=== PATIENT | male | born 1955 | race Caucasian/White ===

== ENCOUNTER 2016-05-12 20:41 | Inpatient (IN) | payer MEDICAID, OTHER ==
[~2016-05-12] VITALS: Ht 180.3 cm; Wt 83.5 kg
[~2016-05-12 20:41] MED LIST: ACID1TAB7 PO; AMIO200T42 PO; APIX5TAB PO; ASPI-496 PO; ASPI325T4 PO; ATOR80TA75 PO; AZIT500T4 PO; CARV12.52 PO; DIGO250T PO; DOCU100C8 PO; DULO20CA17 PO; FAMO20TA7 PO; FENT1PAT75 TD; FERR325T20 PO; FURO40TA6 PO; GABA100C8 PO; GABA300C10 PO; LEVO25TA2 PO; LISI-167 PO; LISI5TAB7 PO; MAGN400T26 PO; METO50TA82 PO; NITR0.4T SL; OXYC1TAB8 PO; POLY17PO5 PO; SPIR25TA PO
[2016-05-12] MEDS ORDERED: DILTIAZEM 125 MG in DEXTROSE 5% 100 ML IV SCH (21:02)
[2016-05-12] MEDS ORDERED: CLOP300T5 PO (21:05)
[2016-05-12] MEDS ORDERED: ONDANSETRON 2MG/ML, 2ML IVPush ONE (21:30)
[2016-05-12] MEDS ORDERED: DILTIAZEM 5 MG/ML, 5ML IV ONE (21:30)
[2016-05-12] MEDS ORDERED: SODIUM CHLORIDE FLUSH 10ML SYR IVF ONE (21:30)
[2016-05-12] MEDS ORDERED: NITROGLYCERIN SINGLE TAB 0.4 MG SL PRN (21:30)
[2016-05-12 21:39] LABS: HEMOGLOBIN 9.8 g/dL (13.7-18.0)
[2016-05-12 21:51] LABS: BLOOD UREA NITROGEN 30 mg/dL (7-18)
[2016-05-12] MEDS ORDERED: SODIUM CHLORIDE FLUSH 10ML SYR IVF PRN (23:00)
[2016-05-12] MEDS ORDERED: DILTIAZEM 5 MG/ML, 5ML ONE (23:49)
[2016-05-12] MEDS ORDERED: ONDANSETRON 2MG/ML, 2ML ONE (23:49)
[2016-05-12] MEDS ORDERED: MORPHINE SULFATE 4 MG/ML, 1ML ONE (23:49)
[2016-05-12] MEDS: MORPHINE SULFATE 4 MG/ML, 1ML IVPush PRN (23:54)
[2016-05-13] MEDS ORDERED: NITROGLYCERIN 0.4 MG BOTTLE (25 TABS) SL PRN (00:30)
[2016-05-13] MEDS ORDERED: BISACODYL 10 MG SUPP PR PRN (00:30)
[2016-05-13] MEDS ORDERED: ACETAMINOPHEN 325 MG TABLET PO PRN (00:30)
[2016-05-13] MEDS ORDERED: POLYETHYLENE GLYCOL 17 GM PACKET PO PRN ×2 (00:30)
[2016-05-13] MEDS ORDERED: ONDANSETRON 2MG/ML, 2ML IVP PRN (00:30)
[2016-05-13] MEDS ORDERED: MORPHINE SULFATE 4 MG/ML, 1ML ONE (00:54)
[2016-05-13] MEDS ORDERED: FUROSEMIDE 20 MG/2 ML ONE (00:54)
[2016-05-13] MEDS: SODIUM CHLORIDE FLUSH 10ML SYR IVF SCH ×2 (00:56→21:00)
[2016-05-13] MEDS: MORPHINE SULFATE 4 MG/ML, 1ML IVPush PRN ×3 (00:56→22:53)
[2016-05-13] MEDS: FUROSEMIDE 20 MG/2 ML IV SCH ×3 (00:56→17:17)
[2016-05-13] MEDS: GABAPENTIN 300 MG CAPSULE PO SCH ×2 (04:10→08:31)
[2016-05-13] MEDS: ATORVASTATIN 80 MG TABLET PO SCH ×2 (04:10→21:13)
[2016-05-13 04:29] LABS: HEMOGLOBIN 9.6 g/dL (13.7-18.0)
[2016-05-13 04:41] LABS: ASPARTATE AMINO TRANSFERASE 23 U/L (15-37); BLOOD UREA NITROGEN 32 mg/dL (7-18)
[2016-05-13 04:43] LABS: IS PT STATUS REG ER OR PRE ER? NO
[2016-05-13] MEDS: ASPIRIN 325 MG TABLET PO SCH (06:16)
[2016-05-13 07:25] VITALS: BP 135/103
[2016-05-13] MEDS: CLOPIDOGREL 75 MG TABLET PO SCH (08:31)
[2016-05-13] MEDS: POTASSIUM CHLORIDE 20 MEQ TAB.ER.PRT PO SCH (08:32)
[2016-05-13] MEDS: SENNA/DOCUSATE TABLET PO SCH (08:32)
[2016-05-13] MEDS: LEVOTHYROXINE 50 MCG TABLET PO SCH (08:32)
[2016-05-13] MEDS: LISINOPRIL 10 MG TABLET PO SCH (08:32)
[2016-05-13] MEDS ORDERED: FUROSEMIDE 40 MG TABLET PO SCH (09:00)
[2016-05-13] MEDS ORDERED: CLOPIDOGREL 300 MG TABLET PO SCH (09:00)
[2016-05-13 09:22] LABS: IS PT STATUS REG ER OR PRE ER? NO
[2016-05-13] MEDS: DILTIAZEM 125 MG in SODIUM CHLORIDE 0.9% 100 ML IV PRN ×2 (13:05→22:54)
[2016-05-13 13:37] VITALS: BP 128/79
[2016-05-13] MEDS ORDERED: GABAPENTIN 300 MG CAPSULE PO SCH (16:00)
[2016-05-13 19:58] VITALS: BP 120/89
[2016-05-13 20:52] VITALS: BP 123/88
[2016-05-13] MEDS: NITROGLYCERIN 0.4 MG BOTTLE (25 TABS) SL PRN (21:13)
[2016-05-13 21:35] VITALS: BP 121/77
[2016-05-13 22:54] VITALS: BP 127/60
[2016-05-13] MEDS ORDERED: GABA100C8 PO (23:11)
[2016-05-13] MEDS ORDERED: APIX5TAB PO (23:11)
[2016-05-13] MEDS ORDERED: OXYC5TAB3 PO (23:53)
[2016-05-13] MEDS ORDERED: MORP15TA39 PO (23:53)
[2016-05-13] MEDS ORDERED: FERR325T20 PO (23:55)
[2016-05-13] MEDS ORDERED: CYAN1TAB29 PO (23:55)
[2016-05-13] MEDS ORDERED: CHOL400T38 PO (23:55)
[2016-05-14] MEDS: APIXABAN 5 MG TABLET PO SCH ×3 (00:04→21:12)
[2016-05-14 00:45] VITALS: BP 112/79
[2016-05-14 04:39] LABS: BLOOD UREA NITROGEN 37 mg/dL (7-18)
[2016-05-14] MEDS: ASPIRIN 325 MG TABLET PO SCH (05:50)
[2016-05-14] MEDS: LEVOTHYROXINE 50 MCG TABLET PO SCH (05:50)
[2016-05-14 07:52] VITALS: BP 128/89
[2016-05-14] MEDS: CLOPIDOGREL 75 MG TABLET PO SCH (08:14)
[2016-05-14] MEDS: GABAPENTIN 100 MG CAPSULE PO SCH (08:14)
[2016-05-14] MEDS: FUROSEMIDE 20 MG/2 ML IV SCH ×2 (08:14→16:34)
[2016-05-14] MEDS: SENNA/DOCUSATE TABLET PO SCH (08:14)
[2016-05-14] MEDS: SODIUM CHLORIDE FLUSH 10ML SYR IVF SCH ×2 (08:15→21:15)
[2016-05-14] MEDS: POTASSIUM CHLORIDE 20 MEQ TAB.ER.PRT PO SCH (08:15)
[2016-05-14] MEDS: LISINOPRIL 10 MG TABLET PO SCH (08:15)
[2016-05-14] MEDS: FERROUS SULFATE 325 MG TABLET PO SCH ×2 (09:10→16:33)
[2016-05-14] MEDS: MORPHINE SULFATE 4 MG/ML, 1ML IVPush PRN (10:04)
[2016-05-14] MEDS ORDERED: AMIODARONE 150 MG in DEXTROSE 5% 100 ML IVPB ONE (11:30)
[2016-05-14] MEDS: FILTER 0.22 MICRON IV PRN (11:56)
[2016-05-14] MEDS: AMIODARONE 900 MG in DEXTROSE 5% 482 ML IV PRN (11:56)
[2016-05-14 13:24] VITALS: BP 126/76
[2016-05-14] MEDS: OXYcodone IR 5MG TABLET PO PRN ×2 (16:34→21:12)
[2016-05-14 19:10] VITALS: BP 133/87
[2016-05-14] MEDS: ATORVASTATIN 80 MG TABLET PO SCH (21:11)
[2016-05-15] MEDS: NITROGLYCERIN 0.4 MG BOTTLE (25 TABS) SL PRN ×2 (00:30→00:37)
[2016-05-15 00:45] LABS: IS PT STATUS REG ER OR PRE ER? NO
[2016-05-15] MEDS: OXYcodone IR 5MG TABLET PO PRN ×3 (01:18→16:51)
[2016-05-15 01:25] VITALS: BP 135/78
[2016-05-15] MEDS: LEVOTHYROXINE 50 MCG TABLET PO SCH (06:34)
[2016-05-15 07:11] VITALS: BP 143/94
[2016-05-15] MEDS: SODIUM CHLORIDE FLUSH 10ML SYR IVF SCH ×2 (08:44→21:40)
[2016-05-15] MEDS: SENNA/DOCUSATE TABLET PO SCH (08:44)
[2016-05-15] MEDS: APIXABAN 5 MG TABLET PO SCH ×2 (08:44→21:39)
[2016-05-15] MEDS: FERROUS SULFATE 325 MG TABLET PO SCH ×2 (08:45→18:24)
[2016-05-15] MEDS: LISINOPRIL 10 MG TABLET PO SCH (08:45)
[2016-05-15] MEDS: GABAPENTIN 100 MG CAPSULE PO SCH (08:45)
[2016-05-15] MEDS: FUROSEMIDE 20 MG/2 ML IV SCH ×2 (08:50→16:51)
[2016-05-15] MEDS: CLOPIDOGREL 75 MG TABLET PO SCH (08:50)
[2016-05-15] MEDS: POTASSIUM CHLORIDE 20 MEQ TAB.ER.PRT PO SCH (08:50)
[2016-05-15 11:55] VITALS: BP 123/87
[2016-05-15] MEDS: AMIODARONE 900 MG in DEXTROSE 5% 482 ML IV PRN (13:07)
[2016-05-15 14:37] VITALS: BP 123/89
[2016-05-15] MEDS ORDERED: OMNIPAQUE 350 MG/ML, 100ML BOTTLE ONE (16:28)
[2016-05-15] MEDS: CARVEDILOL 12.5 MG TABLET PO SCH (16:51)
[2016-05-15 19:08] VITALS: BP 118/80
[2016-05-15] MEDS: ATORVASTATIN 80 MG TABLET PO SCH (21:39)
[2016-05-16 01:27] VITALS: BP 128/78
[2016-05-16 05:49] LABS: BLOOD UREA NITROGEN 28 mg/dL (7-18)
[2016-05-16] MEDS: CARVEDILOL 12.5 MG TABLET PO SCH ×2 (06:26→18:24)
[2016-05-16] MEDS: LEVOTHYROXINE 50 MCG TABLET PO SCH (06:26)
[2016-05-16 06:55] VITALS: BP 121/76
[2016-05-16] MEDS: LISINOPRIL 10 MG TABLET PO SCH (08:31)
[2016-05-16] MEDS: CLOPIDOGREL 75 MG TABLET PO SCH (08:31)
[2016-05-16] MEDS ORDERED: PROPOFOL 10 MG/ML, 20ML ONE (09:17)
[2016-05-16] MEDS: POTASSIUM CHLORIDE 20 MEQ TAB.ER.PRT PO SCH (10:07)
[2016-05-16] MEDS: GABAPENTIN 100 MG CAPSULE PO SCH (10:08)
[2016-05-16] MEDS: FUROSEMIDE 20 MG/2 ML IV SCH ×2 (10:08→18:24)
[2016-05-16] MEDS: FERROUS SULFATE 325 MG TABLET PO SCH ×2 (10:08→18:24)
[2016-05-16] MEDS: SENNA/DOCUSATE TABLET PO SCH (10:08)
[2016-05-16] MEDS: SODIUM CHLORIDE FLUSH 10ML SYR IVF SCH ×2 (10:09→20:50)
[2016-05-16] MEDS: APIXABAN 5 MG TABLET PO SCH ×2 (10:11→20:50)
[2016-05-16 13:46] VITALS: BP 113/75
[2016-05-16 18:20] VITALS: BP 136/88
[2016-05-16] MEDS ORDERED: MAGNESIUM SULFATE PMX 2GM/50ML 50 ML IV ONE (20:30)
[2016-05-16] MEDS ORDERED: MORPHINE SULFATE 4 MG/ML, 1ML IVPush ONE (20:30)
[2016-05-16] MEDS: ATORVASTATIN 80 MG TABLET PO SCH (20:50)
[2016-05-16] MEDS: FILTER 0.22 MICRON IV PRN (20:53)
[2016-05-16] MEDS: AMIODARONE 900 MG in DEXTROSE 5% 482 ML IV PRN (20:53)
[2016-05-16 21:07] LABS: IS PT STATUS REG ER OR PRE ER? NO
[2016-05-17] VITALS (7 sets, daily range): BP systolic 92–146; BP diastolic 55–92
[2016-05-17 02:33] LABS: IS PT STATUS REG ER OR PRE ER? NO
[2016-05-17] MEDS: CARVEDILOL 12.5 MG TABLET PO SCH ×2 (05:41→18:25)
[2016-05-17] MEDS: LEVOTHYROXINE 50 MCG TABLET PO SCH (05:42)
[2016-05-17] MEDS ORDERED: KETOROLAC 30 MG/1 ML IVPush ONE (08:30)
[2016-05-17] MEDS: FUROSEMIDE 20 MG/2 ML IV SCH ×2 (08:38→18:25)
[2016-05-17] MEDS: POTASSIUM CHLORIDE 20 MEQ TAB.ER.PRT PO SCH (08:39)
[2016-05-17] MEDS: FERROUS SULFATE 325 MG TABLET PO SCH ×2 (08:39→18:25)
[2016-05-17] MEDS: APIXABAN 5 MG TABLET PO SCH ×2 (08:40→22:10)
[2016-05-17] MEDS: SODIUM CHLORIDE FLUSH 10ML SYR IVF SCH ×2 (08:40→22:10)
[2016-05-17] MEDS: CLOPIDOGREL 75 MG TABLET PO SCH (08:41)
[2016-05-17] MEDS: LISINOPRIL 10 MG TABLET PO SCH (08:41)
[2016-05-17] MEDS: GABAPENTIN 100 MG CAPSULE PO SCH (08:41)
[2016-05-17] MEDS: SENNA/DOCUSATE TABLET PO SCH (08:42)
[2016-05-17] MEDS: AMIODARONE 200 MG TABLET PO SCH ×2 (10:11→22:10)
[2016-05-17] MEDS: OXYcodone IR 5MG TABLET PO PRN (15:27)
[2016-05-17] MEDS: ATORVASTATIN 80 MG TABLET PO SCH (22:10)
[2016-05-17] MEDS: NITROGLYCERIN 0.4 MG BOTTLE (25 TABS) SL PRN (22:32)
[2016-05-17] MEDS: MORPHINE SULFATE 4 MG/ML, 1ML IVPush PRN (22:46)
[2016-05-17 23:11] LABS: IS PT STATUS REG ER OR PRE ER? NO
[2016-05-18] MEDS: OXYcodone IR 5MG TABLET PO PRN ×2 (01:59→15:58)
[2016-05-18 02:03] VITALS: BP 133/87
[2016-05-18] MEDS: MORPHINE SULFATE 4 MG/ML, 1ML IVPush PRN ×4 (05:20→23:51)
[2016-05-18] MEDS: CARVEDILOL 12.5 MG TABLET PO SCH ×2 (05:20→17:32)
[2016-05-18] MEDS: LEVOTHYROXINE 50 MCG TABLET PO SCH (05:20)
[2016-05-18 05:36] LABS: IS PT STATUS REG ER OR PRE ER? NO
[2016-05-18 08:09] VITALS: BP 144/92
[2016-05-18] MEDS: LISINOPRIL 10 MG TABLET PO SCH (08:24)
[2016-05-18] MEDS: FUROSEMIDE 20 MG/2 ML IV SCH ×2 (08:24→17:31)
[2016-05-18] MEDS: AMIODARONE 200 MG TABLET PO SCH ×2 (08:25→22:30)
[2016-05-18] MEDS: POTASSIUM CHLORIDE 20 MEQ TAB.ER.PRT PO SCH (08:25)
[2016-05-18] MEDS: SENNA/DOCUSATE TABLET PO SCH (08:25)
[2016-05-18] MEDS: GABAPENTIN 100 MG CAPSULE PO SCH (08:25)
[2016-05-18] MEDS: CLOPIDOGREL 75 MG TABLET PO SCH (08:25)
[2016-05-18] MEDS: FERROUS SULFATE 325 MG TABLET PO SCH ×2 (08:25→17:32)
[2016-05-18] MEDS: APIXABAN 5 MG TABLET PO SCH ×2 (08:25→22:30)
[2016-05-18] MEDS: SODIUM CHLORIDE FLUSH 10ML SYR IVF SCH ×2 (08:26→22:31)
[2016-05-18 15:06] VITALS: BP 123/78
[2016-05-18 20:05] VITALS: BP 113/75
[2016-05-18] MEDS: ATORVASTATIN 80 MG TABLET PO SCH (22:29)
[2016-05-19] VITALS (16 sets, daily range): BP systolic 100–135; BP diastolic 69–89
[2016-05-19] MEDS: MORPHINE SULFATE 4 MG/ML, 1ML IVPush PRN ×3 (05:59→23:03)
[2016-05-19] MEDS: LEVOTHYROXINE 50 MCG TABLET PO SCH (05:59)
[2016-05-19] MEDS: CARVEDILOL 12.5 MG TABLET PO SCH ×2 (06:00→18:08)
[2016-05-19] MEDS: APIXABAN 5 MG TABLET PO SCH ×2 (08:07→21:58)
[2016-05-19] MEDS: LISINOPRIL 10 MG TABLET PO SCH (08:07)
[2016-05-19] MEDS: GABAPENTIN 100 MG CAPSULE PO SCH (08:07)
[2016-05-19] MEDS: CLOPIDOGREL 75 MG TABLET PO SCH (08:07)
[2016-05-19] MEDS ORDERED: REGADENOSON 0.4 MG/5 ML SYRINGE ONE (08:26)
[2016-05-19] MEDS: AMIODARONE 200 MG TABLET PO SCH ×2 (10:27→21:59)
[2016-05-19] MEDS: POTASSIUM CHLORIDE 20 MEQ TAB.ER.PRT PO SCH (10:27)
[2016-05-19] MEDS: FUROSEMIDE 20 MG/2 ML IV SCH ×2 (10:28→16:23)
[2016-05-19] MEDS: FERROUS SULFATE 325 MG TABLET PO SCH ×2 (10:28→16:23)
[2016-05-19] MEDS: SODIUM CHLORIDE FLUSH 10ML SYR IVF SCH ×2 (10:28→21:59)
[2016-05-19] MEDS: SENNA/DOCUSATE TABLET PO SCH (10:28)
[2016-05-19] MEDS: OXYcodone IR 5MG TABLET PO PRN ×2 (10:36→15:20)
[2016-05-19] MEDS: ATORVASTATIN 80 MG TABLET PO SCH (21:58)
[2016-05-20 02:34] VITALS: BP 124/76
[2016-05-20 05:34] LABS: HEMOGLOBIN 11.1 g/dL (13.7-18.0)
[2016-05-20 05:43] LABS: BLOOD UREA NITROGEN 33 mg/dL (7-18)
[2016-05-20 06:07] VITALS: BP 121/77
[2016-05-20] MEDS: CARVEDILOL 12.5 MG TABLET PO SCH (06:07)
[2016-05-20] MEDS: MORPHINE SULFATE 4 MG/ML, 1ML IVPush PRN (06:07)
[2016-05-20] MEDS: LEVOTHYROXINE 50 MCG TABLET PO SCH (06:08)
[2016-05-20 07:23] VITALS: BP 119/77
[2016-05-20] MEDS: FUROSEMIDE 20 MG/2 ML IV SCH (09:22)
[2016-05-20] MEDS: SENNA/DOCUSATE TABLET PO SCH (09:23)
[2016-05-20] MEDS: FERROUS SULFATE 325 MG TABLET PO SCH (09:23)
[2016-05-20] MEDS: CLOPIDOGREL 75 MG TABLET PO SCH (09:23)
[2016-05-20] MEDS: GABAPENTIN 100 MG CAPSULE PO SCH (09:23)
[2016-05-20] MEDS: LISINOPRIL 10 MG TABLET PO SCH (09:23)
[2016-05-20] MEDS: AMIODARONE 200 MG TABLET PO SCH (09:23)
[2016-05-20] MEDS: POTASSIUM CHLORIDE 20 MEQ TAB.ER.PRT PO SCH (09:23)
[2016-05-20] MEDS: SODIUM CHLORIDE FLUSH 10ML SYR IVF SCH (09:24)
[2016-05-20] MEDS: APIXABAN 5 MG TABLET PO SCH (09:24)
[2016-05-20] MEDS ORDERED: CARV12.543 PO (09:42)
[2016-05-20] MEDS ORDERED: LEVO50TA PO (09:42)
[2016-05-20] MEDS ORDERED: AMIO200T42 PO (11:15)
[2016-05-20] MEDS: OXYcodone IR 5MG TABLET PO PRN (11:52)
[2016-05-20 11:53] VITALS: BP 108/73
[2016-05-24] MEDS ORDERED: AMIODARONE 200 MG TABLET PO SCH (09:00)
== END 2016-05-20 14:15 | disposition home health service (06) | DRG 308 ==
LOC: ED 22:41 → EDIP 22:42 → ED 23:01 → CCU 05-13 03:17 → ICU 05-13 07:47 → 5SO 05-14 22:33 → DCLOUNGE 05-20 13:35
PROVIDERS: ADMIT Student in an Organized Health Care Education/Training Program; ATTEND Student in an Organized Health Care Education/Training Program
PROC: 5A2204Z Restoration of Cardiac Rhythm, Single (ICD-10-PCS; principal; 2016-05-16 09:15)
DX: I48.2 Chronic atrial fibrillation (principal); I50.43 Acute on chronic combined systolic (congestive) and diastolic (congestive) heart failure; E44.0 Moderate protein-calorie malnutrition; D68.69 Other thrombophilia; I25.10 Atherosclerotic heart disease of native coronary artery without angina pectoris; I25.5 Ischemic cardiomyopathy; I11.0 Hypertensive heart disease with heart failure; D50.9 Iron deficiency anemia, unspecified; I47.2 Ventricular tachycardia; I27.2 Other secondary pulmonary hypertension; E78.5 Hyperlipidemia, unspecified; E03.9 Hypothyroidism, unspecified; I77.810 Thoracic aortic ectasia; N28.9 Disorder of kidney and ureter, unspecified; I25.2 Old myocardial infarction; Z90.49 Acquired absence of other specified parts of digestive tract; Z95.5 Presence of coronary angioplasty implant and graft; Z98.890 Other specified postprocedural states; Z80.3 Family history of malignant neoplasm of breast; Z68.25 Body mass index [BMI] 25.0-25.9, adult; Z79.01 Long term (current) use of anticoagulants
CPT/HCPCS: 36415; 71010; 71275; 78452; 80048; 80053; 82040; 82728; 83540; 83550; 83735; 83880; 84439; 84443; 84484; 85025; 85610; 85730; 87081; 92960; 93005; 93017; 93306; 93970; 96374; 96375; 96376; J1885; J2405; J2704; J2785; Q9967; A9502; C9898; J0282; J1940; J3475; J7060

== ENCOUNTER 2016-08-28 20:18 | Inpatient (IN) | payer MEDICAID, OTHER ==
[~2016-08-28] VITALS: Ht 180.3 cm; Wt 94.2 kg
[~2016-08-28 20:18] MED LIST changes: -AZIT500T4 PO; +AZIT500T77 PO; +CARV12.543 PO; +CHOL400T38 PO; +CLOP300T5 PO; +CYAN1TAB29 PO; +GABA-826 PO; -GABA100C8 PO; +LEVO50TA PO; +MORP-52 PO; +OXYC5TAB3 PO
[2016-08-28] MEDS ORDERED: ONDANSETRON 2MG/ML, 2ML ONE (20:49)
[2016-08-28] MEDS ORDERED: MORPHINE SULFATE 4 MG/ML, 1ML ONE ×2 (20:49→22:12)
[2016-08-28] MEDS: MORPHINE SULFATE 4 MG/ML, 1ML IVPush PRN ×2 (20:56→22:30)
[2016-08-28] MEDS ORDERED: ONDANSETRON 2MG/ML, 2ML IVPush ONE (21:00)
[2016-08-28 21:10] LABS: BLOOD UREA NITROGEN 37 mg/dL (7-18)
[2016-08-28] MEDS ORDERED: CLON-364 PO (22:22)
[2016-08-28] MEDS ORDERED: ISOS60TA36 PO (22:25)
[2016-08-28 22:49] VITALS: BP 150/82
[2016-08-28] MEDS ORDERED: RANO500T2 PO (23:20)
[2016-08-28] MEDS ORDERED: GABA600T2 PO (23:20)
[2016-08-28] MEDS ORDERED: ASPI-496 PO (23:20)
[2016-08-28] MEDS ORDERED: ATOR20TA9 PO (23:20)
[2016-08-29] VITALS (7 sets, daily range): BP systolic 93–113; BP diastolic 57–63
[2016-08-29] MEDS ORDERED: POLYETHYLENE GLYCOL 17 GM PACKET PO PRN (01:00)
[2016-08-29] MEDS ORDERED: NITROGLYCERIN 0.4 MG BOTTLE (25 TABS) SL PRN (01:00)
[2016-08-29] MEDS ORDERED: TEMAZEPAM 15 MG CAPSULE PO PRN (01:00)
[2016-08-29] MEDS ORDERED: ONDANSETRON 2MG/ML, 2ML IVPush PRN (01:00)
[2016-08-29] MEDS ORDERED: hydrALAzine 20 MG/ML, 1ML IVPush PRN (01:00)
[2016-08-29] MEDS ORDERED: MORPHINE SULFATE 4 MG/ML, 1ML ONE (01:21)
[2016-08-29] MEDS: morphine SULFATE 10 MG/ML, 1ML IVPush PRN ×8 (02:16→21:33)
[2016-08-29] MEDS: SODIUM CHLORIDE 0.9% 1,000 ML IV SCH ×2 (02:18→14:38)
[2016-08-29 02:52] LABS: IS PT STATUS REG ER OR PRE ER? NO
[2016-08-29] MEDS: CARVEDILOL 12.5 MG TABLET PO SCH ×2 (06:41→16:46)
[2016-08-29] MEDS: LEVOTHYROXINE 50 MCG TABLET PO SCH (06:41)
[2016-08-29] MEDS: FOLIC ACID MC SCH ×3 (08:00→20:39)
[2016-08-29] MEDS: CYANOCOBALAMIN MC SCH ×3 (08:00→20:39)
[2016-08-29] MEDS: GABAPENTIN 300 MG CAPSULE PO SCH ×3 (08:23→20:38)
[2016-08-29] MEDS: APIXABAN 5 MG TABLET PO SCH ×2 (08:23→20:38)
[2016-08-29 08:27] LABS: IS PT STATUS REG ER OR PRE ER? NO
[2016-08-29 08:38] LABS: BLOOD UREA NITROGEN 37 mg/dL (7-18)
[2016-08-29] MEDS ORDERED: ASPIRIN 81 MG TABLET EC PO SCH (09:00)
[2016-08-29] MEDS ORDERED: LISINOPRIL 20 MG TABLET PO SCH (09:00)
[2016-08-29] MEDS ORDERED: RANOLAZINE 500 MG TAB.ER.12H PO SCH ×2 (09:00→21:00)
[2016-08-29] MEDS ORDERED: CLOPIDOGREL 300 MG TABLET PO SCH (09:00)
[2016-08-29] MEDS ORDERED: CHOLECALCIFEROL 400 UNITS TABLET PO SCH (09:00)
[2016-08-29] MEDS ORDERED: ISOSORBIDE MONONITRATE ER 60 MG TABLET PO SCH (09:00)
[2016-08-29] MEDS ORDERED: AMIODARONE 200 MG TABLET PO SCH (09:00)
[2016-08-29] MEDS ORDERED: CLOPIDOGREL 75 MG TABLET PO SCH (09:00)
[2016-08-29] MEDS ORDERED: FUROSEMIDE 20 MG TABLET PO SCH (09:00)
[2016-08-29] MEDS: Cyanocobalamin/Folic Acid** (Vitamin B12-Folic Acid Tablet**) PO SCH (09:00)
[2016-08-29 14:05] LABS: IS PT STATUS REG ER OR PRE ER? NO
[2016-08-29] MEDS ORDERED: FERROUS SULFATE 325 MG TABLET PO SCH (17:00)
[2016-08-29] MEDS ORDERED: ATORVASTATIN 80 MG TABLET PO SCH (21:00)
[2016-08-29] MEDS ORDERED: ATORVASTATIN 20 MG TABLET PO SCH (21:00)
[2016-08-30] MEDS: morphine SULFATE 10 MG/ML, 1ML IVPush PRN ×3 (00:36→08:38)
[2016-08-30 02:19] VITALS: BP 121/73
[2016-08-30] MEDS: LEVOTHYROXINE 50 MCG TABLET PO SCH (06:07)
[2016-08-30] MEDS: CARVEDILOL 12.5 MG TABLET PO SCH (06:07)
[2016-08-30 07:31] VITALS: BP 129/76
[2016-08-30] MEDS: CYANOCOBALAMIN MC SCH (08:00)
[2016-08-30] MEDS: FOLIC ACID MC SCH (08:00)
[2016-08-30 08:38] VITALS: BP 134/76
[2016-08-30] MEDS ORDERED: REGADENOSON 0.4 MG/5 ML SYRINGE ONE (08:55)
[2016-08-30] MEDS: Cyanocobalamin/Folic Acid** (Vitamin B12-Folic Acid Tablet**) PO SCH (09:00)
[2016-08-30] MEDS ORDERED: CHOLECALCIFEROL 1,000 UNIT TABLET PO SCH (10:00)
[2016-08-30] MEDS ORDERED: CYANOCOBALAMIN 1,000 MCG TABLET PO SCH (10:00)
[2016-08-30] MEDS ORDERED: ISOSORBIDE MONONITRATE ER 60 MG TABLET PO SCH (13:30)
[2016-08-30] MEDS ORDERED: RANO500T2 PO (13:38)
[2016-08-30] MEDS ORDERED: ATOR80TA75 PO (13:38)
[2016-08-30] MEDS ORDERED: ISOS60TA36 PO (13:38)
== END 2016-08-30 16:55 | disposition home or self-care (01) | DRG 302 ==
LOC: ED 21:23 → EDIP 22:25 → 5SO 22:36
PROVIDERS: ADMIT Internal Medicine; ATTEND Internal Medicine
DX: I25.10 Atherosclerotic heart disease of native coronary artery without angina pectoris (principal); N17.0 Acute kidney failure with tubular necrosis; I13.0 Hypertensive heart and chronic kidney disease with heart failure and stage 1 through stage 4 chronic kidney disease, or unspecified chronic kidney disease; E87.1 Hypo-osmolality and hyponatremia; D68.69 Other thrombophilia; I50.20 Unspecified systolic (congestive) heart failure; E03.9 Hypothyroidism, unspecified; I48.0 Paroxysmal atrial fibrillation; E78.5 Hyperlipidemia, unspecified; N18.2 Chronic kidney disease, stage 2 (mild); G89.4 Chronic pain syndrome; D63.8 Anemia in other chronic diseases classified elsewhere; I42.9 Cardiomyopathy, unspecified; Z95.5 Presence of coronary angioplasty implant and graft; I25.2 Old myocardial infarction; Z79.01 Long term (current) use of anticoagulants; Z82.49 Family history of ischemic heart disease and other diseases of the circulatory system; Z80.1 Family history of malignant neoplasm of trachea, bronchus and lung
CPT/HCPCS: 36415; 71010; 78452; 80048; 82040; 83735; 83880; 84100; 84439; 84443; 84484; 85025; 85610; 93005; 93017; 93306; 96374; 96375; 96376; J2405; J2785; A9502; C9898; J2270; J7030

== ENCOUNTER 2017-04-24 08:03 | Inpatient (IN) | payer MEDICAID, OTHER ==
[~2017-04-24] VITALS: Ht 180.3 cm; Wt 113.5 kg
[~2017-04-24 08:03] MED LIST changes: +ASPI325T17 PO; -ASPI325T4 PO; +ATOR-2 PO; +ATOR20TA9 PO; -ATOR80TA75 PO; +AZIT500T5 PO; -AZIT500T77 PO; -CHOL400T38 PO; +CHOL400T55 PO; +CLON-364 PO; +DOCU100C33 PO; -DOCU100C8 PO; +FERR325T18 PO; -FERR325T20 PO; +GABA600T2 PO; +ISOS60TA36 PO; +RANO500T2 PO
[2017-04-24] MEDS ORDERED: SODIUM CHLORIDE FLUSH 10ML SYR IVF ONE (10:00)
[2017-04-24 10:12] LABS: BASOPHILS # (AUTO) 0.02 x10^3/uL (0-0.1); BASOPHILS % (AUTO) 0 % (0-1); EOSINOPHILS # (AUTO) 0.03 x10^3/uL (0-0.4); EOSINOPHILS % (AUTO) 1 % (1-7); LYMPHOCYTES # (AUTO) 0.68 x10^3/uL (1-3.4); LYMPHOCYTES % (AUTO) 12 % (22-44); MD NO; MEAN CORPUSCULAR HEMOGLOBIN 28.8 pg (27.5-34.5); MEAN CORPUSCULAR HGB CONC 33.8 g/dL (33.2-36.2); MEAN CORPUSCULAR VOLUME 85.4 fL (81-97); MEAN PLATELET VOLUME 8.3 fL (7.4-10.4); MONOCYTES # (AUTO) 0.48 x10^3/uL (0.2-0.8); MONOCYTES % (AUTO) 8 % (2-9); NEUTROPHILS # (AUTO) 4.73 x10^3/uL (1.8-6.8); NEUTROPHILS % (AUTO) 80 % (42-75); PLATELET COUNT 244 x10^3/uL (130-400); RED BLOOD COUNT 4.88 x10^6/uL (4.38-5.82); RED CELL DISTRIBUTION WIDTH 14.4 % (9.4-14.8)
[2017-04-24 10:18] LABS: PROTHROMBIN TIME 10.3 Seconds (9.6-11.5)
[2017-04-24 10:23] LABS: ALANINE AMINOTRANSFERASE 52 U/L (12-78); ALBUMIN 3.1 g/dL (3.4-5.0); ANION GAP 7 mmol/L (5-15); CALCIUM 8.3 mg/dL (8.5-10.1); CHLORIDE 109 mmol/L (98-107)
[2017-04-24 10:27] LABS: ALKALINE PHOSPHATASE 116 U/L (45-117); CREATININE 1.02 mg/dL (0.7-1.3); T4 (THYROXINE) 10.6 mcg/dL (4.5-12.1); TOTAL PROTEIN 6.8 g/dL (6.4-8.2)
[2017-04-24 10:32] LABS: TROPONIN I 0.247 ng/mL (0.000-0.045)
[2017-04-24] MEDS ORDERED: ENALAPRILAT 1.25 MG/ML, 2ML IV ONE (11:00)
[2017-04-24] MEDS ORDERED: ENOXAPARIN 120MG/0.8ML SQ ONE ×2 (11:00)
[2017-04-24] MEDS ORDERED: FUROSEMIDE 40 MG/4 ML IV ONE (11:00)
[2017-04-24] MEDS ORDERED: CLOPIDOGREL 75 MG TABLET PO ONE (11:00)
[2017-04-24] MEDS ORDERED: ENALAPRILAT 1.25 MG/ML, 2ML ONE (11:05)
[2017-04-24] MEDS ORDERED: FUROSEMIDE 40 MG/4 ML ONE (11:05)
[2017-04-24] MEDS ORDERED: CLOPIDOGREL 75 MG TABLET ONE (11:05)
[2017-04-24 12:17] VITALS: BP 142/92
[2017-04-24] MEDS ORDERED: GUAIFENESIN/DM 200-20MG, 10ML UDC PO PRN (13:30)
[2017-04-24] MEDS ORDERED: ACETAMINOPHEN 325 MG TABLET PO PRN (13:30)
[2017-04-24] MEDS ORDERED: LORazepam 2 MG/ML, 1ML IVPush PRN (13:30)
[2017-04-24] MEDS ORDERED: HYDROcodone/APAP 5/325 TABLET PO PRN (13:30)
[2017-04-24] MEDS ORDERED: NITROGLYCERIN 0.4 MG BOTTLE (25 TABS) SL PRN (13:30)
[2017-04-24] MEDS ORDERED: ONDANSETRON 2MG/ML, 2ML IVPush PRN (13:30)
[2017-04-24] MEDS ORDERED: BISACODYL 10 MG SUPP PR PRN (13:30)
[2017-04-24] MEDS ORDERED: LABETALOL 5MG/ML, 20ML IVPush PRN (13:30)
[2017-04-24] MEDS ORDERED: POLYETHYLENE GLYCOL 17 GM PACKET PO PRN ×2 (13:30)
[2017-04-24] MEDS: ENOXAPARIN 120MG/0.8ML SQ SCH ×2 (14:06→22:04)
[2017-04-24 14:38] VITALS: BP 140/98
[2017-04-24] MEDS ORDERED: OMNIPAQUE 350 MG/ML, 100ML BOTTLE ONE (15:10)
[2017-04-24] MEDS ORDERED: MORPHINE SULFATE 4 MG/ML, 1ML ONE ×2 (15:27→18:20)
[2017-04-24] MEDS: morphine SULFATE 10 MG/ML, 1ML IVPush PRN ×3 (15:28→22:14)
[2017-04-24] MEDS ORDERED: GABA600T2 PO (15:30)
[2017-04-24] MEDS: GABAPENTIN 100 MG CAPSULE PO SCH ×2 (15:46→22:05)
[2017-04-24] MEDS ORDERED: GABAPENTIN 300 MG CAPSULE PO SCH (16:00)
[2017-04-24 16:20] LABS: TROPONIN I 0.227 ng/mL (0.000-0.045)
[2017-04-24] MEDS: CARVEDILOL 12.5 MG TABLET PO SCH (16:57)
[2017-04-24 17:08] LABS: MICROSCOPIC NOT IND
[2017-04-24 17:10] LABS: CULTURE INDICATED? NO
[2017-04-24 17:20] LABS: AMPHETAMINE SCREEN, URINE Negative (Negative); BARBITURATE SCREEN, URINE Negative (Negative); BENZODIAZEPINE SCREEN, URINE Negative (Negative); CANNABINOID SCREEN, URINE Negative (Negative); COCAINE SCREEN, URINE Negative (Negative); METHADONE SCREEN, URINE Negative (Negative); OPIATE SCREEN, URINE Positive (Negative)
[2017-04-24 20:08] VITALS: BP 131/87
[2017-04-24 21:34] LABS: TROPONIN I 0.255 ng/mL (0.000-0.045)
[2017-04-24] MEDS: RANOLAZINE 500 MG TAB.ER.12H PO SCH (22:04)
[2017-04-24] MEDS: APIXABAN 5 MG TABLET PO SCH (22:05)
[2017-04-24] MEDS: ATORVASTATIN 80 MG TABLET PO SCH (22:05)
[2017-04-24] MEDS: SODIUM CHLORIDE FLUSH 10ML SYR IVF SCH (22:08)
[2017-04-25 01:47] VITALS: BP 129/84
[2017-04-25 02:28] LABS: BASOPHILS # (AUTO) 0.01 x10^3/uL (0-0.1); BASOPHILS % (AUTO) 0 % (0-1); EOSINOPHILS # (AUTO) 0.06 x10^3/uL (0-0.4); EOSINOPHILS % (AUTO) 1 % (1-7); LYMPHOCYTES # (AUTO) 0.87 x10^3/uL (1-3.4); LYMPHOCYTES % (AUTO) 14 % (22-44); MD NO; MEAN CORPUSCULAR HEMOGLOBIN 28.6 pg (27.5-34.5); MEAN CORPUSCULAR HGB CONC 33.4 g/dL (33.2-36.2); MEAN CORPUSCULAR VOLUME 85.5 fL (81-97); MEAN PLATELET VOLUME 8.2 fL (7.4-10.4); MONOCYTES # (AUTO) 0.61 x10^3/uL (0.2-0.8); MONOCYTES % (AUTO) 10 % (2-9); NEUTROPHILS # (AUTO) 4.84 x10^3/uL (1.8-6.8); NEUTROPHILS % (AUTO) 76 % (42-75); PLATELET COUNT 234 x10^3/uL (130-400); RED BLOOD COUNT 4.94 x10^6/uL (4.38-5.82); RED CELL DISTRIBUTION WIDTH 13.9 % (9.4-14.8)
[2017-04-25 02:39] LABS: ALANINE AMINOTRANSFERASE 48 U/L (12-78); ALBUMIN 3.1 g/dL (3.4-5.0); ANION GAP 8 mmol/L (5-15); CHLORIDE 108 mmol/L (98-107); CREATININE 1.34 mg/dL (0.7-1.3)
[2017-04-25 02:42] LABS: ALKALINE PHOSPHATASE 117 U/L (45-117); BILIRUBIN,TOTAL 0.8 mg/dL (0.2-1.0); CHOLESTEROL, TOTAL 155 mg/dL (140-239); HDL CHOL % 17 % (26-37); HDL CHOLESTEROL (DIRECT) 26 mg/dL (40-60); LDL CHOLESTEROL,CALCULATED 101 mg/dL (54-169); LDL/HDL RATIO 3.9 (0.5-3.0); TOTAL PROTEIN 6.7 g/dL (6.4-8.2); TRIGLYCERIDES 142 mg/dL (50-200); VLDL CHOLESTEROL 28 mg/dL (0-25)
[2017-04-25 06:11] VITALS: BP 111/79
[2017-04-25] MEDS: LEVOTHYROXINE 50 MCG TABLET PO SCH (06:13)
[2017-04-25] MEDS: CARVEDILOL 12.5 MG TABLET PO SCH (06:13)
[2017-04-25 08:19] VITALS: BP 130/84
[2017-04-25] MEDS ORDERED: CYANOCOBALOMIN 100MCG TABLET PO SCH (09:00)
[2017-04-25] MEDS: ASPIRIN 81 MG TABLET EC PO SCH (09:11)
[2017-04-25] MEDS: CLOPIDOGREL 75 MG TABLET PO SCH (09:11)
[2017-04-25] MEDS: RANOLAZINE 500 MG TAB.ER.12H PO SCH ×2 (09:11→20:54)
[2017-04-25] MEDS: AMIODARONE 200 MG TABLET PO SCH (09:11)
[2017-04-25] MEDS: GABAPENTIN 100 MG CAPSULE PO SCH ×3 (09:11→20:54)
[2017-04-25] MEDS: CHOLECALCIFEROL 400 UNITS TABLET PO SCH (09:12)
[2017-04-25] MEDS: FUROSEMIDE 40 MG TABLET PO SCH (09:12)
[2017-04-25] MEDS: LISINOPRIL 10 MG TABLET PO SCH (09:12)
[2017-04-25] MEDS: FOLIC ACID 1 MG TABLET PO SCH (09:12)
[2017-04-25] MEDS: CYANOCOBALAMIN 1,000 MCG TABLET PO SCH (09:12)
[2017-04-25] MEDS: ISOSORBIDE MONONITRATE ER 60 MG TABLET PO SCH (09:13)
[2017-04-25] MEDS: APIXABAN 5 MG TABLET PO SCH ×2 (09:13→20:54)
[2017-04-25] MEDS: SODIUM CHLORIDE FLUSH 10ML SYR IVF SCH ×2 (09:13→20:54)
[2017-04-25 14:46] VITALS: BP 100/67
[2017-04-25 17:14] VITALS: BP 118/76
[2017-04-25] MEDS: CARVEDILOL 25 MG TABLET PO SCH (17:14)
[2017-04-25 18:33] VITALS: BP 99/62
[2017-04-25] MEDS: ATORVASTATIN 80 MG TABLET PO SCH (20:54)
[2017-04-26 01:43] VITALS: BP 128/84
[2017-04-26 05:33] VITALS: BP 147/92
[2017-04-26] MEDS: CARVEDILOL 25 MG TABLET PO SCH (05:37)
[2017-04-26] MEDS: LEVOTHYROXINE 50 MCG TABLET PO SCH (05:37)
[2017-04-26 08:00] VITALS: BP 126/83
[2017-04-26] MEDS: FUROSEMIDE 40 MG TABLET PO SCH (08:02)
[2017-04-26] MEDS: AMIODARONE 200 MG TABLET PO SCH (08:02)
[2017-04-26] MEDS: CLOPIDOGREL 75 MG TABLET PO SCH (08:02)
[2017-04-26] MEDS: APIXABAN 5 MG TABLET PO SCH (08:02)
[2017-04-26] MEDS: ISOSORBIDE MONONITRATE ER 60 MG TABLET PO SCH (08:03)
[2017-04-26] MEDS: LISINOPRIL 10 MG TABLET PO SCH (08:03)
[2017-04-26] MEDS: GABAPENTIN 100 MG CAPSULE PO SCH (08:03)
[2017-04-26] MEDS: CYANOCOBALAMIN 1,000 MCG TABLET PO SCH (08:03)
[2017-04-26] MEDS: ASPIRIN 81 MG TABLET EC PO SCH (08:03)
[2017-04-26] MEDS: CHOLECALCIFEROL 400 UNITS TABLET PO SCH (08:03)
[2017-04-26] MEDS: RANOLAZINE 500 MG TAB.ER.12H PO SCH (08:04)
[2017-04-26] MEDS: FOLIC ACID 1 MG TABLET PO SCH (08:04)
[2017-04-26] MEDS: SODIUM CHLORIDE FLUSH 10ML SYR IVF SCH (08:04)
== END 2017-04-26 11:10 | disposition left against medical advice (07) | DRG 291 ==
LOC: ED 10:44 → EDIP 10:45 → ED 11:33 → 5SO 12:12
PROVIDERS: ADMIT Internal Medicine; ATTEND Internal Medicine
DX: I11.0 Hypertensive heart disease with heart failure (principal); J96.00 Acute respiratory failure, unspecified whether with hypoxia or hypercapnia; I47.2 Ventricular tachycardia; D68.69 Other thrombophilia; I50.31 Acute diastolic (congestive) heart failure; I48.0 Paroxysmal atrial fibrillation; I25.110 Atherosclerotic heart disease of native coronary artery with unstable angina pectoris; E03.9 Hypothyroidism, unspecified; E66.9 Obesity, unspecified; E78.5 Hyperlipidemia, unspecified; G89.29 Other chronic pain; I25.5 Ischemic cardiomyopathy; I73.9 Peripheral vascular disease, unspecified; N49.3 Fournier gangrene; Z68.34 Body mass index [BMI] 34.0-34.9, adult; I25.2 Old myocardial infarction; Z79.01 Long term (current) use of anticoagulants; Z79.02 Long term (current) use of antithrombotics/antiplatelets; Z87.891 Personal history of nicotine dependence; Z90.49 Acquired absence of other specified parts of digestive tract; Z91.14 Patient's other noncompliance with medication regimen; Z91.19 Patient's noncompliance with other medical treatment and regimen; Z95.5 Presence of coronary angioplasty implant and graft; Z79.82 Long term (current) use of aspirin; Z53.21 Procedure and treatment not carried out due to patient leaving prior to being seen by health care provider
CPT/HCPCS: 36415; 71045; 71275; 80053; 80061; 80307; 81003; 83735; 83880; 84436; 84443; 84481; 84484; 85025; 85610; 93005; 93306; 96374; 96375; J1650; J1940; Q9967; J2270

== ENCOUNTER 2017-07-01 07:41 | Emergency (ER) | payer OTHER ==
[~2017-07-01] VITALS: Ht 180.3 cm; Wt 95.0 kg
[2017-07-01 07:47] VITALS: BP 137/94
[2017-07-01] MEDS ORDERED: SODIUM CHLORIDE 0.9% 1,000ML IVBOLUS ONE (08:30)
[2017-07-01] MEDS ORDERED: ALBUTEROL/IPRATROPIUM 2.5MG/0.5MG, 3 ML NPPB ONE (08:30)
[2017-07-01 08:47] LABS: BASOPHILS % (AUTO) 0 % (0-1); EOSINOPHILS # (AUTO) 0.01 x10^3/uL (0-0.4); EOSINOPHILS % (AUTO) 0 % (1-7); LYMPHOCYTES # (AUTO) 0.45 x10^3/uL (1-3.4); LYMPHOCYTES % (AUTO) 9 % (22-44); MD NO; MEAN CORPUSCULAR HEMOGLOBIN 28.2 pg (27.5-34.5); MEAN CORPUSCULAR HGB CONC 33.5 g/dL (33.2-36.2); MEAN CORPUSCULAR VOLUME 84.2 fL (81-97); MEAN PLATELET VOLUME 8.2 fL (7.4-10.4); MONOCYTES # (AUTO) 0.57 x10^3/uL (0.2-0.8); MONOCYTES % (AUTO) 11 % (2-9); NEUTROPHILS # (AUTO) 4.21 x10^3/uL (1.8-6.8); NEUTROPHILS % (AUTO) 80 % (42-75); PLATELET COUNT 181 x10^3/uL (130-400); RED BLOOD COUNT 5.58 x10^6/uL (4.38-5.82); RED CELL DISTRIBUTION WIDTH 15.2 % (9.4-14.8)
[2017-07-01 08:59] LABS: ALANINE AMINOTRANSFERASE 30 U/L (12-78); ALBUMIN 3.2 g/dL (3.4-5.0); ANION GAP 9 mmol/L (5-15); CALCIUM 7.8 mg/dL (8.5-10.1); CHLORIDE 103 mmol/L (98-107); CREATININE 1.27 mg/dL (0.7-1.3)
[2017-07-01 09:03] LABS: ALKALINE PHOSPHATASE 105 U/L (45-117); BILIRUBIN,TOTAL 0.5 mg/dL (0.2-1.0); TOTAL PROTEIN 7.3 g/dL (6.4-8.2)
[2017-07-01] MEDS ORDERED: ALBUTEROL/IPRATROPIUM 2.5MG/0.5MG, 3 ML ONE (09:11)
[2017-07-01 09:12] LABS: TROPONIN I 0.223 ng/mL (0.000-0.045)
[2017-07-01] MEDS ORDERED: ASPIRIN 81 MG TABLET CHEW PO ONE (09:30)
[2017-07-01] MEDS ORDERED: SODIUM CHLORIDE FLUSH 10ML SYR IVF ONE (09:30)
[2017-07-01 09:35] LABS: PROTHROMBIN TIME 10.4 Seconds (9.6-11.5)
== END 2017-07-01 09:41 | disposition left against medical advice (07) ==
LOC: ED 09:40
DX: R06.00 Dyspnea, unspecified (principal); J00 Acute nasopharyngitis [common cold]; B97.89 Other viral agents as the cause of diseases classified elsewhere; R79.1 Abnormal coagulation profile; I48.91 Unspecified atrial fibrillation; I50.9 Heart failure, unspecified; I11.0 Hypertensive heart disease with heart failure
CPT/HCPCS: 36415; 71046; 80053; 83880; 84484; 85025; 85610; 85730; 93005; 94640; 99285; J7620

== ENCOUNTER 2017-08-31 17:13 | Inpatient (IN) | payer OTHER ==
[~2017-08-31] VITALS: Ht 180.3 cm; Wt 116.7 kg
[2017-08-31] MEDS ORDERED: SODIUM CHLORIDE FLUSH 10ML SYR IVF ONE (17:30)
[2017-08-31] MEDS ORDERED: NITROGLYCERIN SINGLE TAB 0.4 MG SL ONE (17:31)
[2017-08-31] MEDS: NITROGLYCERIN SINGLE TAB 0.4 MG SL PRN ×3 (17:45→17:59)
[2017-08-31] MEDS ORDERED: MORPHINE SULFATE 4 MG/ML, 1ML ONE (18:02)
[2017-08-31 18:05] LABS: BASOPHILS # (AUTO) 0.03 x10^3/uL (0-0.1); BASOPHILS % (AUTO) 1 % (0-1); EOSINOPHILS # (AUTO) 0.04 x10^3/uL (0-0.4); EOSINOPHILS % (AUTO) 1 % (1-7); LYMPHOCYTES # (AUTO) 0.84 x10^3/uL (1-3.4); LYMPHOCYTES % (AUTO) 14 % (22-44); MD NO; MEAN CORPUSCULAR VOLUME 87.8 fL (81-97); MEAN PLATELET VOLUME 8.5 fL (7.4-10.4); MONOCYTES # (AUTO) 0.44 x10^3/uL (0.2-0.8); MONOCYTES % (AUTO) 8 % (2-9); NEUTROPHILS % (AUTO) 77 % (42-75); PLATELET COUNT 229 x10^3/uL (130-400); RED BLOOD COUNT 4.67 x10^6/uL (4.38-5.82); RED CELL DISTRIBUTION WIDTH 15.9 % (9.4-14.8)
[2017-08-31 18:17] LABS: ALANINE AMINOTRANSFERASE 88 U/L (12-78); ANION GAP 9 mmol/L (5-15); BILIRUBIN, DIRECT 0.2 mg/dL (0.1-0.2); CALCIUM 8.6 mg/dL (8.5-10.1); CHLORIDE 116 mmol/L (98-107); CREATININE 1.47 mg/dL (0.7-1.3)
[2017-08-31 18:22] LABS: ALKALINE PHOSPHATASE 135 U/L (45-117); BILIRUBIN,INDIRECT 0.4 mg/dL (0.0-2.0); BILIRUBIN,TOTAL 0.6 mg/dL (0.2-1.0); TOTAL PROTEIN 6.2 g/dL (6.4-8.2)
[2017-08-31 18:28] LABS: TROPONIN I 0.496 ng/mL (0.000-0.045)
[2017-08-31] MEDS ORDERED: MORPHINE SULFATE 4 MG/ML, 1ML IVPush ONE (18:30)
[2017-08-31 18:32] LABS: INTERNATIONAL NORMALIZED RATIO 1.06 (0.93-1.1)
[2017-08-31] MEDS ORDERED: HEPARIN 5,000 UNITS/ML, 1ML IV PRN (19:00)
[2017-08-31] MEDS ORDERED: HEPARIN 5,000 UNITS/ML, 1ML IV ONE (19:00)
[2017-08-31] MEDS ORDERED: HEPARIN 25,000 UNITS/500ML PMX 500 ML IV PRN (19:00)
[2017-08-31] MEDS ORDERED: ONDANSETRON ODT 4 MG PO PRN (19:30)
[2017-08-31] MEDS ORDERED: DOCUSATE 100 MG CAPSULE PO PRN (19:30)
[2017-08-31] MEDS ORDERED: NITROGLYCERIN 0.4 MG/SPRAY SL PRN (19:30)
[2017-08-31] MEDS ORDERED: LABETALOL 5MG/ML, 20ML IVPush PRN (19:30)
[2017-08-31] MEDS ORDERED: ACETAMINOPHEN 325 MG TABLET PO PRN (19:30)
[2017-08-31] MEDS ORDERED: TEMAZEPAM 15 MG CAPSULE PO PRN (19:30)
[2017-08-31] MEDS ORDERED: ISOS30TA8 PO (19:31)
[2017-08-31] MEDS ORDERED: ATOR20TA9 PO (19:31)
[2017-08-31 20:02] VITALS: BP 134/105
[2017-08-31 20:11] VITALS: BP 134/105
[2017-08-31 20:29] LABS: TROPONIN I 0.613 ng/mL (0.000-0.045)
[2017-08-31] MEDS: RANOLAZINE 500 MG TAB.ER.12H PO SCH (20:50)
[2017-08-31] MEDS: APIXABAN 5 MG TABLET PO SCH (20:50)
[2017-08-31] MEDS: GABAPENTIN 100 MG CAPSULE PO SCH (20:50)
[2017-08-31] MEDS: FUROSEMIDE 20 MG/2 ML IV SCH (20:51)
[2017-08-31] MEDS: ATORVASTATIN 80 MG TABLET PO SCH (20:52)
[2017-08-31] MEDS: morphine SULFATE 10 MG/ML, 1ML IVPush PRN (20:52)
[2017-09-01 01:11] VITALS: BP 129/94
[2017-09-01 02:53] LABS: ALANINE AMINOTRANSFERASE 84 U/L (12-78); ALBUMIN 2.8 g/dL (3.4-5.0); ANION GAP 10 mmol/L (5-15); CALCIUM 8.4 mg/dL (8.5-10.1); CHLORIDE 113 mmol/L (98-107); CREATININE 1.41 mg/dL (0.7-1.3)
[2017-09-01 02:56] LABS: ALKALINE PHOSPHATASE 114 U/L (45-117); BILIRUBIN,TOTAL 0.5 mg/dL (0.2-1.0); CHOL/HDL RATIO 5.8; CHOLESTEROL, TOTAL 111 mg/dL (140-239); HDL CHOL % 17 % (26-37); HDL CHOLESTEROL (DIRECT) 19 mg/dL (40-60); LDL CHOLESTEROL,CALCULATED 67 mg/dL (54-169); LDL/HDL RATIO 3.5 (0.5-3.0); TRIGLYCERIDES 127 mg/dL (50-200); VLDL CHOLESTEROL 25 mg/dL (0-25)
[2017-09-01] MEDS ORDERED: MAGNESIUM SULFATE PMX 1GM/100ML IVPB ONE (04:00)
[2017-09-01] MEDS ORDERED: MAGNESIUM SULFATE IN WATER 50 ML IVPB ONE (04:00)
[2017-09-01] MEDS: morphine SULFATE 10 MG/ML, 1ML IVPush PRN ×2 (04:08→09:17)
[2017-09-01] MEDS: LEVOTHYROXINE 50 MCG TABLET PO SCH (05:53)
[2017-09-01] MEDS: CARVEDILOL 12.5 MG TABLET PO SCH ×2 (05:54→17:52)
[2017-09-01] MEDS ORDERED: FUROSEMIDE 20 MG/2 ML IV SCH (09:00)
[2017-09-01 09:07] VITALS: BP 127/88
[2017-09-01 09:19] VITALS: BP 129/89
[2017-09-01] MEDS: POTASSIUM CHLORIDE 20 MEQ TAB.ER.PRT PO SCH (10:12)
[2017-09-01] MEDS: LISINOPRIL 20 MG TABLET PO SCH (10:13)
[2017-09-01] MEDS: FUROSEMIDE 20 MG/2 ML IV SCH ×2 (10:13→21:03)
[2017-09-01] MEDS: GABAPENTIN 100 MG CAPSULE PO SCH ×3 (10:13→21:02)
[2017-09-01] MEDS: AMIODARONE 200 MG TABLET PO SCH (10:13)
[2017-09-01] MEDS: RANOLAZINE 500 MG TAB.ER.12H PO SCH ×2 (10:13→21:32)
[2017-09-01] MEDS: APIXABAN 5 MG TABLET PO SCH ×2 (10:13→21:03)
[2017-09-01] MEDS: ASPIRIN 81 MG TABLET EC PO SCH (10:13)
[2017-09-01] MEDS: CLOPIDOGREL 75 MG TABLET PO SCH (10:14)
[2017-09-01 10:38] VITALS: BP 138/110
[2017-09-01] MEDS ORDERED: SODIUM BICARB 8.4%,50ML SYR. 150 MEQ in DEXTROSE 5% 1,000 ML IV SCH (12:12)
[2017-09-01] MEDS ORDERED: MIDAZOLAM 1 MG/ML, 5ML ONE (12:43)
[2017-09-01] MEDS ORDERED: FENTANYL PF 100 MCG/2ML ONE (12:43)
[2017-09-01] MEDS ORDERED: DIPHENHYDRAMINE 50 MG/ML, 1ML ONE (12:43)
[2017-09-01] MEDS ORDERED: VERAPAMIL 2.5 MG/ML, 2ML ONE (12:43)
[2017-09-01] MEDS ORDERED: LIDOCAINE/PF 1%, 30ML ONE (12:44)
[2017-09-01] MEDS ORDERED: BIVALIRUDIN 250 MG ONE (12:44)
[2017-09-01] MEDS ORDERED: HEPARIN 1,000 UNITS/ML, 10ML ONE (12:44)
[2017-09-01] MEDS ORDERED: NALOXONE 0.4 MG/ML, 1ML ONE (14:49)
[2017-09-01] MEDS ORDERED: FLUMAZENIL 0.1 MG/1 ML, 5ML ONE (14:49)
[2017-09-01] MEDS ORDERED: FUROSEMIDE 20 MG/2 ML IV ONE (18:00)
[2017-09-01] MEDS: ATORVASTATIN 80 MG TABLET PO SCH (21:02)
[2017-09-02 04:00] VITALS: BP 130/104
[2017-09-02 04:36] LABS: BASOPHILS # (AUTO) 0.03 x10^3/uL (0-0.1); BASOPHILS % (AUTO) 1 % (0-1); EOSINOPHILS # (AUTO) 0.05 x10^3/uL (0-0.4); EOSINOPHILS % (AUTO) 1 % (1-7); LYMPHOCYTES % (AUTO) 13 % (22-44); MD NO; MEAN CORPUSCULAR HEMOGLOBIN 28.7 pg (27.5-34.5); MEAN CORPUSCULAR VOLUME 87.1 fL (81-97); MEAN PLATELET VOLUME 8.6 fL (7.4-10.4); MONOCYTES % (AUTO) 9 % (2-9); NEUTROPHILS # (AUTO) 4.89 x10^3/uL (1.8-6.8); NEUTROPHILS % (AUTO) 77 % (42-75); PLATELET COUNT 218 x10^3/uL (130-400); RED BLOOD COUNT 4.77 x10^6/uL (4.38-5.82); RED CELL DISTRIBUTION WIDTH 15.5 % (9.4-14.8)
[2017-09-02 04:42] LABS: ALANINE AMINOTRANSFERASE 83 U/L (12-78); ANION GAP 11 mmol/L (5-15); CALCIUM 8.5 mg/dL (8.5-10.1); CHLORIDE 110 mmol/L (98-107); CREATININE 1.67 mg/dL (0.7-1.3)
[2017-09-02 04:44] LABS: ALKALINE PHOSPHATASE 116 U/L (45-117); BILIRUBIN,TOTAL 0.5 mg/dL (0.2-1.0); TOTAL PROTEIN 6.1 g/dL (6.4-8.2)
[2017-09-02] MEDS: CARVEDILOL 12.5 MG TABLET PO SCH (05:43)
[2017-09-02] MEDS: LEVOTHYROXINE 50 MCG TABLET PO SCH (06:24)
[2017-09-02] MEDS: RANOLAZINE 500 MG TAB.ER.12H PO SCH (08:21)
[2017-09-02] MEDS: GABAPENTIN 100 MG CAPSULE PO SCH (08:22)
[2017-09-02] MEDS: CLOPIDOGREL 75 MG TABLET PO SCH (08:22)
[2017-09-02] MEDS: APIXABAN 5 MG TABLET PO SCH (08:22)
[2017-09-02] MEDS: ASPIRIN 81 MG TABLET EC PO SCH (08:22)
[2017-09-02] MEDS: AMIODARONE 200 MG TABLET PO SCH (08:22)
[2017-09-02] MEDS: POTASSIUM CHLORIDE 20 MEQ TAB.ER.PRT PO SCH (08:22)
[2017-09-02] MEDS: FUROSEMIDE 20 MG/2 ML IV SCH (08:23)
[2017-09-02] MEDS: LISINOPRIL 20 MG TABLET PO SCH (08:28)
== END 2017-09-02 12:41 | disposition left against medical advice (07) | DRG 280 ==
LOC: ED 18:38 → EDIP 18:53 → 5SO 19:38 → CCU 09-01 14:47
PROVIDERS: ADMIT Internal Medicine; ATTEND Internal Medicine
PROC: 4A023N7 Measurement of Cardiac Sampling and Pressure, Left Heart, Percutaneous Approach (ICD-10-PCS; principal; 2017-09-01)
PROC: B2111ZZ Fluoroscopy of Multiple Coronary Arteries using Low Osmolar Contrast (ICD-10-PCS; 2017-09-01)
PROC: B2151ZZ Fluoroscopy of Left Heart using Low Osmolar Contrast (ICD-10-PCS; 2017-09-01)
PROC: 5A09357 Assistance with Respiratory Ventilation, Less than 24 Consecutive Hours, Continuous Positive Airway Pressure (ICD-10-PCS; 2017-09-01)
DX: I21.4 Non-ST elevation (NSTEMI) myocardial infarction (principal); E43 Unspecified severe protein-calorie malnutrition; J96.01 Acute respiratory failure with hypoxia; I50.43 Acute on chronic combined systolic (congestive) and diastolic (congestive) heart failure; D68.59 Other primary thrombophilia; E87.2 Acidosis; I13.0 Hypertensive heart and chronic kidney disease with heart failure and stage 1 through stage 4 chronic kidney disease, or unspecified chronic kidney disease; N17.9 Acute kidney failure, unspecified; I42.0 Dilated cardiomyopathy; I48.1 Persistent atrial fibrillation; E03.9 Hypothyroidism, unspecified; Z68.35 Body mass index [BMI] 35.0-35.9, adult; E78.5 Hyperlipidemia, unspecified; F41.9 Anxiety disorder, unspecified; G47.31 Primary central sleep apnea; G62.9 Polyneuropathy, unspecified; G89.4 Chronic pain syndrome; I25.110 Atherosclerotic heart disease of native coronary artery with unstable angina pectoris; I35.1 Nonrheumatic aortic (valve) insufficiency; I73.9 Peripheral vascular disease, unspecified; K75.9 Inflammatory liver disease, unspecified; N18.9 Chronic kidney disease, unspecified; Z79.02 Long term (current) use of antithrombotics/antiplatelets; Z79.82 Long term (current) use of aspirin; Z82.49 Family history of ischemic heart disease and other diseases of the circulatory system; Z87.891 Personal history of nicotine dependence; Z90.49 Acquired absence of other specified parts of digestive tract; Z95.5 Presence of coronary angioplasty implant and graft
CPT/HCPCS: 36415; 36600; 71045; 80048; 80053; 80061; 80076; 82040; 82803; 83690; 83735; 83880; 84100; 84484; 85025; 85520; 85610; 85730; 87081; 93005; 93458; 94660; 96374; 99156; 99157; 99291; C1760; C1769; C1894; J0583; J1644; J2250; J2310; J3010; J3490; J1200; J1940; J2270; Q9967

== ENCOUNTER 2017-10-05 07:00 | Inpatient (IN) | payer OTHER ==
[~2017-10-05] VITALS: Ht 180.3 cm; Wt 114.3 kg
[~2017-10-05 07:00] MED LIST changes: -CLON-364 PO; +CLON0.5T11 PO; +ISOS30TA8 PO
[2017-10-05] MEDS ORDERED: CHOL100011 PO (07:10)
[2017-10-05] MEDS ORDERED: FERR-51 PO (07:10)
[2017-10-05] MEDS ORDERED: SODIUM CHLORIDE FLUSH 10ML SYR IVF ONE (07:30)
[2017-10-05 08:00] LABS: BASOPHILS # (AUTO) 0.02 x10^3/uL (0-0.1); BASOPHILS % (AUTO) 0 % (0-1); EOSINOPHILS # (AUTO) 0.11 x10^3/uL (0-0.4); EOSINOPHILS % (AUTO) 1 % (1-7); LYMPHOCYTES # (AUTO) 0.32 x10^3/uL (1-3.4); LYMPHOCYTES % (AUTO) 3 % (22-44); MD NO; MEAN CORPUSCULAR HEMOGLOBIN 27.8 pg (27.5-34.5); MEAN CORPUSCULAR HGB CONC 32.2 g/dL (33.2-36.2); MEAN CORPUSCULAR VOLUME 86.2 fL (81-97); MEAN PLATELET VOLUME 8.1 fL (7.4-10.4); MONOCYTES # (AUTO) 0.66 x10^3/uL (0.2-0.8); MONOCYTES % (AUTO) 7 % (2-9); NEUTROPHILS # (AUTO) 8.57 x10^3/uL (1.8-6.8); NEUTROPHILS % (AUTO) 89 % (42-75); PLATELET COUNT 289 x10^3/uL (130-400); RED BLOOD COUNT 4.54 x10^6/uL (4.38-5.82); RED CELL DISTRIBUTION WIDTH 16.5 % (9.4-14.8)
[2017-10-05 08:14] LABS: ANION GAP 9 mmol/L (5-15); CALCIUM 8.1 mg/dL (8.5-10.1); CHLORIDE 106 mmol/L (98-107)
[2017-10-05 08:19] LABS: ALANINE AMINOTRANSFERASE 23 U/L (12-78); ALKALINE PHOSPHATASE 107 U/L (45-117); BILIRUBIN,TOTAL 1.1 mg/dL (0.2-1.0); CREATININE 1.24 mg/dL (0.7-1.3); TROPONIN I 0.074 ng/mL (0.000-0.045)
[2017-10-05] MEDS ORDERED: OMNIPAQUE 350 MG/ML, 100ML BOTTLE ONE (08:36)
[2017-10-05] MEDS ORDERED: AZITHROMYCIN 500 MG in SODIUM CHLORIDE 0.9% 250 ML IV ONE (09:00)
[2017-10-05] MEDS ORDERED: CEFTRIAXONE 1,000 MG in SODIUM CHLORIDE 0.9% 50 ML IVPB ONE (09:00)
[2017-10-05] MEDS ORDERED: CEFTRIAXONE PMX 1GM/50ML 0 ML ONE (09:08)
[2017-10-05 10:06] VITALS: BP 152/84
[2017-10-05] MEDS ORDERED: SODIUM CHLORIDE 0.9% 1,000 ML IV SCH (10:30)
[2017-10-05] MEDS ORDERED: POLYETHYLENE GLYCOL 17 GM PACKET PO PRN (11:00)
[2017-10-05] MEDS ORDERED: morphine SULFATE 10 MG/ML, 1ML IVPush PRN (11:00)
[2017-10-05] MEDS ORDERED: HEPARIN 5,000 UNITS/ML, 1ML SQ SCH (11:00)
[2017-10-05] MEDS ORDERED: ONDANSETRON 2MG/ML, 2ML IVPush PRN (11:00)
[2017-10-05] MEDS ORDERED: ACETAMINOPHEN 325 MG TABLET PO PRN (11:00)
[2017-10-05] MEDS ORDERED: FUROSEMIDE 40 MG/4 ML IV SCH (11:00)
[2017-10-05] MEDS ORDERED: TEMAZEPAM 15 MG CAPSULE PO PRN (11:00)
[2017-10-05] MEDS ORDERED: FUROSEMIDE 40 MG/4 ML IV ONE (11:30)
[2017-10-05] MEDS: CLOPIDOGREL 75 MG TABLET PO SCH (11:55)
[2017-10-05] MEDS: ASPIRIN 81 MG TABLET EC PO SCH (11:56)
[2017-10-05] MEDS: APIXABAN 5 MG TABLET PO SCH ×2 (11:56→21:06)
[2017-10-05] MEDS: AMIODARONE 200 MG TABLET PO SCH (11:56)
[2017-10-05] MEDS: ISOSORBIDE MONONITRATE ER 60 MG TABLET PO SCH (11:57)
[2017-10-05] MEDS: LISINOPRIL 5 MG TABLET PO SCH (11:57)
[2017-10-05] MEDS: FERROUS SULFATE 325 MG TABLET PO SCH (11:57)
[2017-10-05] MEDS: GABAPENTIN 100 MG CAPSULE PO SCH ×3 (11:57→21:06)
[2017-10-05] MEDS: RANOLAZINE 500 MG TAB.ER.12H PO SCH ×2 (11:58→21:15)
[2017-10-05] MEDS: CHOLECALCIFEROL 1,000 UNIT TABLET PO SCH (11:58)
[2017-10-05] MEDS: POTASSIUM CHLORIDE 20 MEQ TAB.ER.PRT PO SCH (11:58)
[2017-10-05 14:44] VITALS: BP 100/55
[2017-10-05] MEDS ORDERED: CARVEDILOL 12.5 MG TABLET PO SCH (18:00)
[2017-10-05 18:23] VITALS: BP 111/79
[2017-10-05] MEDS: FUROSEMIDE 40 MG/4 ML IV SCH (18:25)
[2017-10-05] MEDS: CARVEDILOL 12.5 MG TABLET PO SCH (18:25)
[2017-10-05 20:47] VITALS: BP 91/71
[2017-10-05] MEDS: ATORVASTATIN 80 MG TABLET PO SCH (21:06)
[2017-10-06] VITALS (8 sets, daily range): BP systolic 82–119; BP diastolic 43–79
[2017-10-06 04:53] LABS: BASOPHILS # (AUTO) 0.05 x10^3/uL (0-0.1); BASOPHILS % (AUTO) 1 % (0-1); EOSINOPHILS # (AUTO) 0.04 x10^3/uL (0-0.4); EOSINOPHILS % (AUTO) 1 % (1-7); LYMPHOCYTES # (AUTO) 0.48 x10^3/uL (1-3.4); LYMPHOCYTES % (AUTO) 6 % (22-44); MD NO; MEAN CORPUSCULAR HEMOGLOBIN 28.2 pg (27.5-34.5); MEAN CORPUSCULAR HGB CONC 32.1 g/dL (33.2-36.2); MEAN CORPUSCULAR VOLUME 87.9 fL (81-97); MONOCYTES # (AUTO) 0.68 x10^3/uL (0.2-0.8); MONOCYTES % (AUTO) 9 % (2-9); NEUTROPHILS # (AUTO) 6.62 x10^3/uL (1.8-6.8); NEUTROPHILS % (AUTO) 84 % (42-75); PLATELET COUNT 265 x10^3/uL (130-400); RED BLOOD COUNT 4.06 x10^6/uL (4.38-5.82); RED CELL DISTRIBUTION WIDTH 16.5 % (9.4-14.8)
[2017-10-06 05:07] LABS: ALANINE AMINOTRANSFERASE 21 U/L (12-78); ALBUMIN 2.4 g/dL (3.4-5.0); ANION GAP 9 mmol/L (5-15); CALCIUM 7.9 mg/dL (8.5-10.1); CHLORIDE 103 mmol/L (98-107); CREATININE 1.57 mg/dL (0.7-1.3)
[2017-10-06 05:09] LABS: ALKALINE PHOSPHATASE 88 U/L (45-117); BILIRUBIN,TOTAL 0.7 mg/dL (0.2-1.0); TOTAL PROTEIN 6.1 g/dL (6.4-8.2)
[2017-10-06] MEDS: ASPIRIN 81 MG TABLET EC PO SCH (06:06)
[2017-10-06] MEDS: FUROSEMIDE 40 MG/4 ML IV SCH (06:06)
[2017-10-06] MEDS: CARVEDILOL 12.5 MG TABLET PO SCH ×2 (06:06→17:50)
[2017-10-06] MEDS: LEVOTHYROXINE 50 MCG TABLET PO SCH (06:06)
[2017-10-06] MEDS: POTASSIUM CHLORIDE 20 MEQ TAB.ER.PRT PO SCH (08:24)
[2017-10-06] MEDS: FERROUS SULFATE 325 MG TABLET PO SCH (08:24)
[2017-10-06] MEDS: GABAPENTIN 100 MG CAPSULE PO SCH ×3 (08:24→20:41)
[2017-10-06] MEDS: APIXABAN 5 MG TABLET PO SCH ×2 (08:24→20:30)
[2017-10-06] MEDS: LISINOPRIL 5 MG TABLET PO SCH (08:24)
[2017-10-06] MEDS: AMIODARONE 200 MG TABLET PO SCH (08:24)
[2017-10-06] MEDS: ISOSORBIDE MONONITRATE ER 60 MG TABLET PO SCH (08:24)
[2017-10-06] MEDS: CLOPIDOGREL 75 MG TABLET PO SCH (08:25)
[2017-10-06] MEDS: RANOLAZINE 500 MG TAB.ER.12H PO SCH ×2 (08:25→20:30)
[2017-10-06] MEDS: CHOLECALCIFEROL 1,000 UNIT TABLET PO SCH (08:25)
[2017-10-06] MEDS ORDERED: ENALAPRILAT 1.25 MG/ML, 2ML IV PRN (14:30)
[2017-10-06] MEDS: ATORVASTATIN 80 MG TABLET PO SCH (20:30)
[2017-10-07 00:43] VITALS: BP 128/84
[2017-10-07 05:12] LABS: BASOPHILS # (AUTO) 0.03 x10^3/uL (0-0.1); BASOPHILS % (AUTO) 1 % (0-1); EOSINOPHILS # (AUTO) 0.13 x10^3/uL (0-0.4); EOSINOPHILS % (AUTO) 2 % (1-7); LYMPHOCYTES # (AUTO) 0.48 x10^3/uL (1-3.4); LYMPHOCYTES % (AUTO) 8 % (22-44); MD NO; MEAN CORPUSCULAR HEMOGLOBIN 28.3 pg (27.5-34.5); MEAN CORPUSCULAR HGB CONC 32.7 g/dL (33.2-36.2); MEAN CORPUSCULAR VOLUME 86.5 fL (81-97); MEAN PLATELET VOLUME 7.9 fL (7.4-10.4); MONOCYTES # (AUTO) 0.49 x10^3/uL (0.2-0.8); MONOCYTES % (AUTO) 8 % (2-9); NEUTROPHILS # (AUTO) 5.03 x10^3/uL (1.8-6.8); NEUTROPHILS % (AUTO) 82 % (42-75); PLATELET COUNT 284 x10^3/uL (130-400); RED BLOOD COUNT 4.22 x10^6/uL (4.38-5.82); RED CELL DISTRIBUTION WIDTH 16.5 % (9.4-14.8)
[2017-10-07 05:22] LABS: ANION GAP 6 mmol/L (5-15); CALCIUM 8.3 mg/dL (8.5-10.1); CHLORIDE 104 mmol/L (98-107)
[2017-10-07 05:27] LABS: CHOL/HDL RATIO 4.2; CHOLESTEROL, TOTAL 96 mg/dL (140-239); CREATININE 1.43 mg/dL (0.7-1.3); HDL CHOL % 24 % (26-37); HDL CHOLESTEROL (DIRECT) 23 mg/dL (40-60); LDL CHOLESTEROL,CALCULATED 56 mg/dL (54-169); LDL/HDL RATIO 2.4 (0.5-3.0); TRIGLYCERIDES 87 mg/dL (50-200); VLDL CHOLESTEROL 17 mg/dL (0-25)
[2017-10-07] MEDS: ASPIRIN 81 MG TABLET EC PO SCH (06:02)
[2017-10-07] MEDS: CARVEDILOL 12.5 MG TABLET PO SCH ×2 (06:02→16:43)
[2017-10-07] MEDS: LEVOTHYROXINE 50 MCG TABLET PO SCH (06:02)
[2017-10-07 06:55] VITALS: BP 123/86
[2017-10-07] MEDS: CHOLECALCIFEROL 1,000 UNIT TABLET PO SCH (08:23)
[2017-10-07] MEDS: RANOLAZINE 500 MG TAB.ER.12H PO SCH ×2 (08:23→20:58)
[2017-10-07] MEDS: CLOPIDOGREL 75 MG TABLET PO SCH (08:24)
[2017-10-07] MEDS: FERROUS SULFATE 325 MG TABLET PO SCH (08:24)
[2017-10-07] MEDS: ISOSORBIDE MONONITRATE ER 60 MG TABLET PO SCH (08:24)
[2017-10-07] MEDS: POTASSIUM CHLORIDE 20 MEQ TAB.ER.PRT PO SCH (08:24)
[2017-10-07] MEDS: LISINOPRIL 5 MG TABLET PO SCH (08:24)
[2017-10-07] MEDS: AMIODARONE 200 MG TABLET PO SCH (08:25)
[2017-10-07] MEDS: GABAPENTIN 100 MG CAPSULE PO SCH ×3 (08:25→20:58)
[2017-10-07] MEDS: APIXABAN 5 MG TABLET PO SCH ×2 (08:25→20:58)
[2017-10-07] MEDS ORDERED: FUROSEMIDE 40 MG/4 ML IV ONE (08:30)
[2017-10-07] MEDS: SPIRONOLACTONE 25 MG TABLET PO SCH (12:07)
[2017-10-07 13:03] VITALS: BP 105/63
[2017-10-07 19:39] VITALS: BP 110/74
[2017-10-07] MEDS: ATORVASTATIN 80 MG TABLET PO SCH (20:58)
[2017-10-07] MEDS ORDERED: FUROSEMIDE 10 MG/ML ORAL SOL PO SCH (21:00)
[2017-10-08 02:00] VITALS: BP 108/72
[2017-10-08] MEDS: LEVOTHYROXINE 50 MCG TABLET PO SCH (05:14)
[2017-10-08] MEDS: CARVEDILOL 12.5 MG TABLET PO SCH ×2 (05:15→18:19)
[2017-10-08] MEDS: ASPIRIN 81 MG TABLET EC PO SCH (05:15)
[2017-10-08 05:31] LABS: BASOPHILS # (AUTO) 0.02 x10^3/uL (0-0.1); BASOPHILS % (AUTO) 0 % (0-1); EOSINOPHILS # (AUTO) 0.11 x10^3/uL (0-0.4); EOSINOPHILS % (AUTO) 2 % (1-7); LYMPHOCYTES # (AUTO) 0.45 x10^3/uL (1-3.4); LYMPHOCYTES % (AUTO) 7 % (22-44); MD NO; MEAN CORPUSCULAR HGB CONC 32.4 g/dL (33.2-36.2); MEAN CORPUSCULAR VOLUME 86.5 fL (81-97); MEAN PLATELET VOLUME 7.6 fL (7.4-10.4); MONOCYTES # (AUTO) 0.46 x10^3/uL (0.2-0.8); MONOCYTES % (AUTO) 8 % (2-9); NEUTROPHILS % (AUTO) 83 % (42-75); PLATELET COUNT 293 x10^3/uL (130-400); RED BLOOD COUNT 4.37 x10^6/uL (4.38-5.82); RED CELL DISTRIBUTION WIDTH 16.4 % (9.4-14.8)
[2017-10-08 05:42] LABS: ANION GAP 6 mmol/L (5-15); CALCIUM 8.6 mg/dL (8.5-10.1); CHLORIDE 103 mmol/L (98-107)
[2017-10-08 05:45] LABS: CREATININE 1.58 mg/dL (0.7-1.3)
[2017-10-08 07:07] VITALS: BP 134/78
[2017-10-08] MEDS: RANOLAZINE 500 MG TAB.ER.12H PO SCH (08:11)
[2017-10-08] MEDS: CHOLECALCIFEROL 1,000 UNIT TABLET PO SCH (08:11)
[2017-10-08] MEDS: FERROUS SULFATE 325 MG TABLET PO SCH (08:12)
[2017-10-08] MEDS: ISOSORBIDE MONONITRATE ER 60 MG TABLET PO SCH (08:12)
[2017-10-08] MEDS: APIXABAN 5 MG TABLET PO SCH (08:12)
[2017-10-08] MEDS: GABAPENTIN 100 MG CAPSULE PO SCH ×2 (08:13→17:52)
[2017-10-08] MEDS: SPIRONOLACTONE 25 MG TABLET PO SCH (08:13)
[2017-10-08] MEDS: CLOPIDOGREL 75 MG TABLET PO SCH (08:13)
[2017-10-08] MEDS: AMIODARONE 200 MG TABLET PO SCH (08:13)
[2017-10-08] MEDS: POTASSIUM CHLORIDE 20 MEQ TAB.ER.PRT PO SCH (08:14)
[2017-10-08] MEDS: LISINOPRIL 5 MG TABLET PO SCH (08:14)
[2017-10-08] MEDS ORDERED: FUROSEMIDE 20 MG TABLET PO SCH (09:00)
[2017-10-08] MEDS ORDERED: SPIR25TA PO (13:00)
== END 2017-10-08 18:25 | disposition home or self-care (01) | DRG 291 ==
LOC: ED 08:59 → EDIP 09:00 → ED 09:22 → 4WST 09:58
PROVIDERS: ADMIT Hospitalist; ATTEND Internal Medicine
DX: I11.0 Hypertensive heart disease with heart failure (principal); N17.0 Acute kidney failure with tubular necrosis; J96.10 Chronic respiratory failure, unspecified whether with hypoxia or hypercapnia; D68.69 Other thrombophilia; E66.9 Obesity, unspecified; I50.43 Acute on chronic combined systolic (congestive) and diastolic (congestive) heart failure; Z68.35 Body mass index [BMI] 35.0-35.9, adult; E78.5 Hyperlipidemia, unspecified; G47.33 Obstructive sleep apnea (adult) (pediatric); I07.1 Rheumatic tricuspid insufficiency; I25.10 Atherosclerotic heart disease of native coronary artery without angina pectoris; I25.5 Ischemic cardiomyopathy; I77.810 Thoracic aortic ectasia; I25.82 Chronic total occlusion of coronary artery; I27.20 Pulmonary hypertension, unspecified; I34.0 Nonrheumatic mitral (valve) insufficiency; I35.8 Other nonrheumatic aortic valve disorders; I48.2 Chronic atrial fibrillation; Z79.01 Long term (current) use of anticoagulants; Z80.1 Family history of malignant neoplasm of trachea, bronchus and lung; Z90.49 Acquired absence of other specified parts of digestive tract; Z95.5 Presence of coronary angioplasty implant and graft; Z95.810 Presence of automatic (implantable) cardiac defibrillator; Z99.81 Dependence on supplemental oxygen
CPT/HCPCS: 36415; 70450; 71275; 80048; 80053; 80061; 83605; 83735; 83880; 84100; 84443; 84484; 85014; 85018; 85025; 87040; 93005; 96374; 99285; C8929; J0456; J0696; J1940; Q9967; J7050

== ENCOUNTER 2017-11-28 19:29 | Inpatient (IN) | payer MEDICAID, OTHER ==
[~2017-11-28] VITALS: Ht 180.3 cm; Wt 120.9 kg
[~2017-11-28 19:29] MED LIST changes: +CHOL100011 PO; +FERR-51 PO
[2017-11-28 20:28] LABS: BASOPHILS # (AUTO) 0.02 x10^3/uL (0-0.1); BASOPHILS % (AUTO) 1 % (0-1); EOSINOPHILS # (AUTO) 0.07 x10^3/uL (0-0.4); EOSINOPHILS % (AUTO) 1 % (1-7); LYMPHOCYTES % (AUTO) 9 % (22-44); MD NO; MEAN CORPUSCULAR HEMOGLOBIN 24.8 pg (27.5-34.5); MEAN CORPUSCULAR VOLUME 80.1 fL (81-97); MEAN PLATELET VOLUME 7.9 fL (7.4-10.4); MONOCYTES % (AUTO) 7 % (2-9); NEUTROPHILS % (AUTO) 82 % (42-75); PLATELET COUNT 212 x10^3/uL (130-400); RED CELL DISTRIBUTION WIDTH 18.7 % (9.4-14.8)
[2017-11-28] MEDS ORDERED: SODIUM CHLORIDE FLUSH 10ML SYR IVF ONE (20:30)
[2017-11-28 20:39] LABS: INTERNATIONAL NORMALIZED RATIO 1.11 (0.93-1.1); PROTHROMBIN TIME 11.5 Seconds (9.6-11.5)
[2017-11-28 20:41] LABS: ALBUMIN 2.8 g/dL (3.4-5.0); ANION GAP 8 mmol/L (5-15); CALCIUM 8.2 mg/dL (8.5-10.1); CHLORIDE 114 mmol/L (98-107); CREATININE 1.67 mg/dL (0.7-1.3)
[2017-11-28 20:45] LABS: TROPONIN I 0.064 ng/mL (0.000-0.045)
[2017-11-28] MEDS ORDERED: ONDANSETRON ODT 4 MG ONE (20:58)
[2017-11-28] MEDS ORDERED: ONDANSETRON ODT 4 MG PO ONE (21:00)
[2017-11-28] MEDS ORDERED: NITROGLYCERIN OINT 2%, 1GM TP ONE ×2 (21:30→21:35)
[2017-11-28] MEDS ORDERED: SODIUM CHLORIDE FLUSH 10ML SYR IVF PRN (21:30)
[2017-11-28 22:29] VITALS: BP 134/90
[2017-11-28] MEDS ORDERED: MORPHINE SULFATE 4 MG/ML, 1ML IVPush PRN (23:30)
[2017-11-28] MEDS ORDERED: ZOLPIDEM 5MG TABLET PO PRN (23:30)
[2017-11-28] MEDS ORDERED: morphine SULFATE 10 MG/ML, 1ML IVPush PRN (23:30)
[2017-11-28] MEDS ORDERED: ONDANSETRON ODT 4 MG PO PRN (23:30)
[2017-11-28] MEDS ORDERED: ACETAMINOPHEN 325 MG TABLET PO PRN (23:30)
[2017-11-28] MEDS ORDERED: ONDANSETRON 2MG/ML, 2ML IVPush PRN (23:30)
[2017-11-28] MEDS ORDERED: NITROGLYCERIN 0.4 MG BOTTLE (25 TABS) SL PRN (23:30)
[2017-11-28] MEDS ORDERED: POLYETHYLENE GLYCOL 17 GM PACKET PO PRN (23:30)
[2017-11-29 00:40] LABS: TROPONIN I 0.069 ng/mL (0.000-0.045)
[2017-11-29 01:11] VITALS: BP 111/61
[2017-11-29] MEDS: LEVOTHYROXINE 50 MCG TABLET PO SCH (05:41)
[2017-11-29] MEDS: CARVEDILOL 12.5 MG TABLET PO SCH ×2 (05:41→17:34)
[2017-11-29 06:09] LABS: ANION GAP 7 mmol/L (5-15); CALCIUM 7.8 mg/dL (8.5-10.1); CHLORIDE 111 mmol/L (98-107)
[2017-11-29 06:10] LABS: CREATININE 1.46 mg/dL (0.7-1.3)
[2017-11-29 06:49] VITALS: BP 105/68
[2017-11-29] MEDS: FUROSEMIDE 40 MG/4 ML IV SCH (09:35)
[2017-11-29] MEDS: SODIUM CHLORIDE FLUSH 10ML SYR IVF SCH ×2 (09:36→20:46)
[2017-11-29] MEDS: AMIODARONE 200 MG TABLET PO SCH (09:36)
[2017-11-29] MEDS: CLOPIDOGREL 75 MG TABLET PO SCH (09:36)
[2017-11-29] MEDS: APIXABAN 5 MG TABLET PO SCH ×2 (09:36→20:46)
[2017-11-29] MEDS: SPIRONOLACTONE 25 MG TABLET PO SCH (09:37)
[2017-11-29] MEDS: ASPIRIN 81 MG TABLET CHEW PO SCH (09:37)
[2017-11-29] MEDS: ISOSORBIDE MONONITRATE ER 60 MG TABLET PO SCH (09:55)
[2017-11-29] MEDS: MORPHINE SULFATE 4 MG/ML, 1ML IVPush PRN ×3 (09:56→21:27)
[2017-11-29 10:07] LABS: THYROID STIMULATING HORMONE 11.4 mIU/L (0.358-3.740)
[2017-11-29 12:31] LABS: TROPONIN I 0.051 ng/mL (0.000-0.045)
[2017-11-29] MEDS: IRON SUCROSE COMPLEX 100MG/5ML IV SCH (14:02)
[2017-11-29 15:58] VITALS: BP 111/71
[2017-11-29 20:05] VITALS: BP_SYST 112; BP_SYST 120; BP_DIAS 64; BP_DIAS 68
[2017-11-29] MEDS: ATORVASTATIN 80 MG TABLET PO SCH (20:46)
[2017-11-30 02:01] VITALS: BP 125/69
[2017-11-30] MEDS: MORPHINE SULFATE 4 MG/ML, 1ML IVPush PRN ×3 (04:22→20:17)
[2017-11-30 05:01] LABS: BASOPHILS # (AUTO) 0.01 x10^3/uL (0-0.1); BASOPHILS % (AUTO) 0 % (0-1); EOSINOPHILS # (AUTO) 0.09 x10^3/uL (0-0.4); EOSINOPHILS % (AUTO) 2 % (1-7); LYMPHOCYTES # (AUTO) 0.35 x10^3/uL (1-3.4); LYMPHOCYTES % (AUTO) 6 % (22-44); MD NO; MEAN CORPUSCULAR HEMOGLOBIN 25.1 pg (27.5-34.5); MEAN CORPUSCULAR VOLUME 80.8 fL (81-97); MEAN PLATELET VOLUME 7.7 fL (7.4-10.4); MONOCYTES # (AUTO) 0.44 x10^3/uL (0.2-0.8); MONOCYTES % (AUTO) 8 % (2-9); NEUTROPHILS # (AUTO) 4.82 x10^3/uL (1.8-6.8); NEUTROPHILS % (AUTO) 85 % (42-75); PLATELET COUNT 206 x10^3/uL (130-400); RED BLOOD COUNT 4.03 x10^6/uL (4.38-5.82); RED CELL DISTRIBUTION WIDTH 18.2 % (9.4-14.8)
[2017-11-30 05:10] LABS: ANION GAP 5 mmol/L (5-15); CHLORIDE 106 mmol/L (98-107); CREATININE 1.25 mg/dL (0.7-1.3)
[2017-11-30 05:47] VITALS: BP 104/68
[2017-11-30] MEDS: LEVOTHYROXINE 50 MCG TABLET PO SCH (05:48)
[2017-11-30] MEDS: CARVEDILOL 12.5 MG TABLET PO SCH ×2 (05:49→17:59)
[2017-11-30 06:41] VITALS: BP 99/67
[2017-11-30] MEDS: IRON SUCROSE COMPLEX 100MG/5ML IV SCH (09:23)
[2017-11-30] MEDS: SPIRONOLACTONE 25 MG TABLET PO SCH (09:24)
[2017-11-30] MEDS: AMIODARONE 200 MG TABLET PO SCH (09:24)
[2017-11-30] MEDS: APIXABAN 5 MG TABLET PO SCH ×2 (09:24→20:15)
[2017-11-30] MEDS: ISOSORBIDE MONONITRATE ER 60 MG TABLET PO SCH (09:24)
[2017-11-30] MEDS: ASPIRIN 81 MG TABLET CHEW PO SCH (09:24)
[2017-11-30] MEDS: CLOPIDOGREL 75 MG TABLET PO SCH (09:25)
[2017-11-30] MEDS: FUROSEMIDE 40 MG/4 ML IV SCH (09:25)
[2017-11-30] MEDS: SODIUM CHLORIDE FLUSH 10ML SYR IVF SCH ×2 (09:26→20:15)
[2017-11-30 12:23] VITALS: BP 102/49
[2017-11-30 20:01] VITALS: BP 105/69
[2017-11-30] MEDS: ATORVASTATIN 80 MG TABLET PO SCH (20:15)
[2017-12-01 01:26] VITALS: BP 106/75
[2017-12-01 05:04] VITALS: BP 119/73
[2017-12-01] MEDS: CARVEDILOL 12.5 MG TABLET PO SCH (05:09)
[2017-12-01] MEDS: LEVOTHYROXINE 50 MCG TABLET PO SCH (05:09)
[2017-12-01 05:19] LABS: BASOPHILS # (AUTO) 0.03 x10^3/uL (0-0.1); BASOPHILS % (AUTO) 0 % (0-1); EOSINOPHILS # (AUTO) 0.13 x10^3/uL (0-0.4); EOSINOPHILS % (AUTO) 2 % (1-7); LYMPHOCYTES # (AUTO) 0.46 x10^3/uL (1-3.4); LYMPHOCYTES % (AUTO) 7 % (22-44); MD NO; MEAN CORPUSCULAR HEMOGLOBIN 25.5 pg (27.5-34.5); MEAN CORPUSCULAR HGB CONC 31.8 g/dL (33.2-36.2); MEAN CORPUSCULAR VOLUME 80.1 fL (81-97); MONOCYTES # (AUTO) 0.59 x10^3/uL (0.2-0.8); MONOCYTES % (AUTO) 10 % (2-9); NEUTROPHILS % (AUTO) 81 % (42-75); PLATELET COUNT 198 x10^3/uL (130-400); RED BLOOD COUNT 4.25 x10^6/uL (4.38-5.82); RED CELL DISTRIBUTION WIDTH 18.8 % (9.4-14.8)
[2017-12-01 05:32] LABS: ANION GAP 6 mmol/L (5-15); CALCIUM 7.8 mg/dL (8.5-10.1); CHLORIDE 104 mmol/L (98-107)
[2017-12-01 05:34] LABS: CREATININE 1.18 mg/dL (0.7-1.3)
[2017-12-01 07:36] VITALS: BP 120/81
[2017-12-01] MEDS ORDERED: FURO40TA6 PO (08:22)
[2017-12-01] MEDS ORDERED: FERR325T16 PO (08:22)
[2017-12-01] MEDS: ISOSORBIDE MONONITRATE ER 60 MG TABLET PO SCH (08:45)
[2017-12-01] MEDS: IRON SUCROSE COMPLEX 100MG/5ML IV SCH (08:45)
[2017-12-01] MEDS: APIXABAN 5 MG TABLET PO SCH (08:45)
[2017-12-01] MEDS: SODIUM CHLORIDE FLUSH 10ML SYR IVF SCH (08:46)
[2017-12-01] MEDS: AMIODARONE 200 MG TABLET PO SCH (08:46)
[2017-12-01] MEDS: CLOPIDOGREL 75 MG TABLET PO SCH (08:46)
[2017-12-01] MEDS: ASPIRIN 81 MG TABLET CHEW PO SCH (08:46)
[2017-12-01] MEDS ORDERED: FUROSEMIDE 40 MG TABLET PO SCH (09:00)
[2017-12-01] MEDS ORDERED: SPIR25TA PO (10:29)
== END 2017-12-01 12:55 | disposition home or self-care (01) | DRG 682 ==
LOC: ED 20:13 → EDIP 21:24 → 5SO 22:03 → DCLOUNGE 12-01 12:44
PROVIDERS: ADMIT Hospitalist; ATTEND Hospitalist
DX: N17.9 Acute kidney failure, unspecified (principal); I50.43 Acute on chronic combined systolic (congestive) and diastolic (congestive) heart failure; I13.0 Hypertensive heart and chronic kidney disease with heart failure and stage 1 through stage 4 chronic kidney disease, or unspecified chronic kidney disease; D68.69 Other thrombophilia; J96.10 Chronic respiratory failure, unspecified whether with hypoxia or hypercapnia; I25.110 Atherosclerotic heart disease of native coronary artery with unstable angina pectoris; I42.9 Cardiomyopathy, unspecified; G47.33 Obstructive sleep apnea (adult) (pediatric); E78.5 Hyperlipidemia, unspecified; E66.9 Obesity, unspecified; E03.9 Hypothyroidism, unspecified; I25.2 Old myocardial infarction; I27.20 Pulmonary hypertension, unspecified; D50.9 Iron deficiency anemia, unspecified; I48.2 Chronic atrial fibrillation; N18.9 Chronic kidney disease, unspecified; Z79.82 Long term (current) use of aspirin; Z86.79 Personal history of other diseases of the circulatory system; Z95.810 Presence of automatic (implantable) cardiac defibrillator; Z99.81 Dependence on supplemental oxygen; Z88.0 Allergy status to penicillin; Z87.01 Personal history of pneumonia (recurrent); Z68.37 Body mass index [BMI] 37.0-37.9, adult
CPT/HCPCS: 36415; 71045; 80048; 82040; 82728; 83540; 83550; 83735; 83880; 84100; 84436; 84443; 84466; 84484; 85025; 85610; 85730; 90656; 93005; 99285; G0378; J1756; J1940; Q0162

== ENCOUNTER 2017-12-08 14:46 | Inpatient (IN) | payer SELFPAY ==
[~2017-12-08] VITALS: Ht 180.3 cm; Wt 119.5 kg
[~2017-12-08 14:46] MED LIST changes: +FERR325T16 PO
[2017-12-08] MEDS ORDERED: SODIUM CHLORIDE FLUSH 10ML SYR IVF ONE (15:00)
[2017-12-08 15:33] LABS: BASOPHILS # (AUTO) 0.01 x10^3/uL (0-0.1); BASOPHILS % (AUTO) 0 % (0-1); EOSINOPHILS # (AUTO) 0.09 x10^3/uL (0-0.4); EOSINOPHILS % (AUTO) 2 % (1-7); LYMPHOCYTES # (AUTO) 0.47 x10^3/uL (1-3.4); LYMPHOCYTES % (AUTO) 9 % (22-44); MD NO; MEAN CORPUSCULAR HEMOGLOBIN 25.7 pg (27.5-34.5); MEAN CORPUSCULAR HGB CONC 31.7 g/dL (33.2-36.2); MEAN CORPUSCULAR VOLUME 81.2 fL (81-97); MEAN PLATELET VOLUME 8.3 fL (7.4-10.4); MONOCYTES # (AUTO) 0.45 x10^3/uL (0.2-0.8); MONOCYTES % (AUTO) 9 % (2-9); NEUTROPHILS # (AUTO) 4.22 x10^3/uL (1.8-6.8); NEUTROPHILS % (AUTO) 81 % (42-75); PLATELET COUNT 214 x10^3/uL (130-400); RED CELL DISTRIBUTION WIDTH 21.5 % (9.4-14.8)
[2017-12-08 15:42] LABS: ALBUMIN 2.9 g/dL (3.4-5.0); ANION GAP 8 mmol/L (5-15); CALCIUM 8.2 mg/dL (8.5-10.1); CHLORIDE 110 mmol/L (98-107); CREATININE 1.46 mg/dL (0.7-1.3)
[2017-12-08] MEDS ORDERED: CLOP75TA52 PO (15:45)
[2017-12-08 15:46] LABS: TROPONIN I 0.059 ng/mL (0.000-0.045)
[2017-12-08] MEDS ORDERED: KETOROLAC 30 MG/1 ML ONE (16:38)
[2017-12-08] MEDS ORDERED: KETOROLAC 30 MG/1 ML IVPush STA (16:42)
[2017-12-08] MEDS ORDERED: FUROSEMIDE 40 MG/4 ML IV ONE (17:30)
[2017-12-08] MEDS ORDERED: ONDANSETRON ODT 4 MG PO PRN (17:30)
[2017-12-08 18:36] VITALS: BP 146/123
[2017-12-08 18:38] VITALS: BP 153/100
[2017-12-08] MEDS: APIXABAN 5 MG TABLET PO SCH (19:37)
[2017-12-08] MEDS: CARVEDILOL 12.5 MG TABLET PO SCH (19:38)
[2017-12-08] MEDS: ATORVASTATIN 80 MG TABLET PO SCH (19:38)
[2017-12-08] MEDS: morphine SULFATE 10 MG/ML, 1ML IVPush PRN (20:12)
[2017-12-08 20:15] VITALS: BP 146/95
[2017-12-08 21:33] LABS: TROPONIN I 0.078 ng/mL (0.000-0.045)
[2017-12-09] MEDS: morphine SULFATE 10 MG/ML, 1ML IVPush PRN (02:18)
[2017-12-09 02:23] VITALS: BP 134/86
[2017-12-09 04:07] LABS: TROPONIN I 0.069 ng/mL (0.000-0.045)
[2017-12-09] MEDS: LEVOTHYROXINE 50 MCG TABLET PO SCH (06:09)
[2017-12-09] MEDS: CARVEDILOL 12.5 MG TABLET PO SCH (06:09)
[2017-12-09 07:12] VITALS: BP 142/98
[2017-12-09] MEDS: FERROUS GLUCONATE 324 MG TABLET PO SCH ×2 (08:00→16:55)
[2017-12-09] MEDS: CLOPIDOGREL 75 MG TABLET PO SCH (08:37)
[2017-12-09] MEDS: ASPIRIN 81 MG TABLET EC PO SCH (08:38)
[2017-12-09] MEDS: LISINOPRIL 10 MG TABLET PO SCH (08:38)
[2017-12-09] MEDS: ISOSORBIDE MONONITRATE ER 60 MG TABLET PO SCH (08:38)
[2017-12-09] MEDS: APIXABAN 5 MG TABLET PO SCH ×2 (08:38→21:16)
[2017-12-09] MEDS: AMIODARONE 200 MG TABLET PO SCH (08:39)
[2017-12-09 08:53] LABS: ANION GAP 9 mmol/L (5-15); CALCIUM 8.8 mg/dL (8.5-10.1); CHLORIDE 108 mmol/L (98-107); CREATININE 1.42 mg/dL (0.7-1.3)
[2017-12-09] MEDS ORDERED: POTASSIUM CHLORIDE 20 MEQ TAB.ER.PRT PO ONE (09:00)
[2017-12-09] MEDS ORDERED: FUROSEMIDE 40 MG TABLET PO SCH (09:00)
[2017-12-09] MEDS: SPIRONOLACTONE 25 MG TABLET PO SCH (11:38)
[2017-12-09] MEDS: FUROSEMIDE 20 MG/2 ML IV SCH ×3 (11:39→21:20)
[2017-12-09 12:16] VITALS: BP 136/87
[2017-12-09 16:53] VITALS: BP 138/83
[2017-12-09] MEDS: CARVEDILOL 6.25 MG TABLET PO SCH (16:55)
[2017-12-09 19:05] VITALS: BP 115/77
[2017-12-09] MEDS: ATORVASTATIN 80 MG TABLET PO SCH (21:16)
[2017-12-09 21:19] VITALS: BP 121/73
[2017-12-10 00:53] VITALS: BP 123/76
[2017-12-10 01:40] VITALS: BP 122/84
[2017-12-10 05:40] VITALS: BP 124/83
[2017-12-10] MEDS: LEVOTHYROXINE 50 MCG TABLET PO SCH (05:41)
[2017-12-10] MEDS: CARVEDILOL 6.25 MG TABLET PO SCH (05:41)
[2017-12-10] MEDS: FUROSEMIDE 20 MG/2 ML IV SCH (05:42)
[2017-12-10 07:46] VITALS: BP 136/87
[2017-12-10] MEDS: FERROUS GLUCONATE 324 MG TABLET PO SCH (09:04)
[2017-12-10] MEDS: SPIRONOLACTONE 25 MG TABLET PO SCH (09:04)
[2017-12-10] MEDS: ISOSORBIDE MONONITRATE ER 60 MG TABLET PO SCH (09:04)
[2017-12-10] MEDS: CLOPIDOGREL 75 MG TABLET PO SCH (09:04)
[2017-12-10] MEDS: AMIODARONE 200 MG TABLET PO SCH (09:04)
[2017-12-10] MEDS: APIXABAN 5 MG TABLET PO SCH (09:05)
[2017-12-10] MEDS: ASPIRIN 81 MG TABLET EC PO SCH (09:05)
[2017-12-10] MEDS: LISINOPRIL 10 MG TABLET PO SCH (09:05)
[2017-12-10] MEDS ORDERED: SPIR25TA PO (12:35)
[2017-12-10 12:43] VITALS: BP 111/72
== END 2017-12-10 13:12 | disposition home or self-care (01) | DRG 291 ==
LOC: ED 16:44 → EDIP 16:45 → SUATTDRO 17:00 → ED 17:13 → 5SO 18:32 → DCLOUNGE 12-10 13:11
PROVIDERS: ADMIT Family Medicine; ATTEND Internal Medicine
DX: I13.0 Hypertensive heart and chronic kidney disease with heart failure and stage 1 through stage 4 chronic kidney disease, or unspecified chronic kidney disease (principal); I50.43 Acute on chronic combined systolic (congestive) and diastolic (congestive) heart failure; J96.21 Acute and chronic respiratory failure with hypoxia; N17.0 Acute kidney failure with tubular necrosis; D68.59 Other primary thrombophilia; I25.110 Atherosclerotic heart disease of native coronary artery with unstable angina pectoris; E03.9 Hypothyroidism, unspecified; E66.9 Obesity, unspecified; E78.5 Hyperlipidemia, unspecified; G89.4 Chronic pain syndrome; I25.5 Ischemic cardiomyopathy; I48.2 Chronic atrial fibrillation; N18.9 Chronic kidney disease, unspecified; Z79.01 Long term (current) use of anticoagulants; Z79.02 Long term (current) use of antithrombotics/antiplatelets; Z82.49 Family history of ischemic heart disease and other diseases of the circulatory system; Z95.5 Presence of coronary angioplasty implant and graft; Z99.81 Dependence on supplemental oxygen; Z79.82 Long term (current) use of aspirin; Z79.899 Other long term (current) drug therapy; Z90.49 Acquired absence of other specified parts of digestive tract; Z68.36 Body mass index [BMI] 36.0-36.9, adult
CPT/HCPCS: 36415; 71045; 80048; 82040; 83880; 84484; 85025; 93005; 96374; 99285; G0378; J1885; J1940; J2270

== ENCOUNTER 2017-12-31 17:17 | Inpatient (IN) | payer SELFPAY ==
[~2017-12-31] VITALS: Ht 180.3 cm; Wt 119.5 kg
[~2017-12-31 17:17] MED LIST changes: +CLOP75TA52 PO
[2017-12-31] MEDS ORDERED: MORPHINE SULFATE 4 MG/ML, 1ML IVPush PRN (18:00)
[2017-12-31] MEDS ORDERED: ONDANSETRON 2MG/ML, 2ML IVPush ONE (18:00)
[2017-12-31] MEDS ORDERED: ONDANSETRON 2MG/ML, 2ML ONE (18:24)
[2017-12-31] MEDS ORDERED: MORPHINE SULFATE 4 MG/ML, 1ML ONE (18:24)
[2017-12-31 18:28] LABS: MEAN CORPUSCULAR HEMOGLOBIN 26.5 pg (27.5-34.5); MEAN CORPUSCULAR HGB CONC 31.5 g/dL (33.2-36.2); MEAN CORPUSCULAR VOLUME 84.2 fL (81-97); MEAN PLATELET VOLUME 7.9 fL (7.4-10.4); PLATELET COUNT 220 x10^3/uL (130-400); RED BLOOD COUNT 4.72 x10^6/uL (4.38-5.82); RED CELL DISTRIBUTION WIDTH 23.5 % (9.4-14.8)
[2017-12-31 18:39] LABS: ALBUMIN 2.9 g/dL (3.4-5.0); ANION GAP 7 mmol/L (5-15); CALCIUM 8.3 mg/dL (8.5-10.1); CHLORIDE 106 mmol/L (98-107)
[2017-12-31 18:43] LABS: TROPONIN I 0.118 ng/mL (0.000-0.045)
[2017-12-31] MEDS ORDERED: FERR324T5 PO (18:50)
[2017-12-31] MEDS ORDERED: ASPI-650 PO (18:50)
[2017-12-31 18:53] LABS: BASOPHILS # (AUTO) 0.02 x10^3/uL (0-0.1); BASOPHILS % (AUTO) 0 % (0-1); EOSINOPHILS # (AUTO) 0.02 x10^3/uL (0-0.4); EOSINOPHILS % (AUTO) 0 % (1-7); LYMPHOCYTES # (AUTO) 0.37 x10^3/uL (1-3.4); LYMPHOCYTES % (AUTO) 6 % (22-44); MD SCAN; MONOCYTES # (AUTO) 0.44 x10^3/uL (0.2-0.8); MONOCYTES % (AUTO) 7 % (2-9); NEUTROPHILS # (AUTO) 5.75 x10^3/uL (1.8-6.8); NEUTROPHILS % (AUTO) 87 % (42-75)
[2017-12-31] MEDS ORDERED: NITROGLYCERIN SINGLE TAB 0.4 MG SL ONE (19:01)
[2017-12-31] MEDS: NITROGLYCERIN SINGLE TAB 0.4 MG SL PRN ×3 (19:03→19:18)
[2017-12-31] MEDS ORDERED: NITROGLYCERIN 0.4 MG/SPRAY SL PRN (20:00)
[2017-12-31] MEDS ORDERED: POLYETHYLENE GLYCOL 17 GM PACKET PO PRN (20:00)
[2017-12-31] MEDS ORDERED: NITROGLYCERIN 0.4 MG BOTTLE (25 TABS) SL PRN ×2 (20:00)
[2017-12-31] MEDS ORDERED: ACETAMINOPHEN 325 MG TABLET PO PRN (20:00)
[2017-12-31 20:16] VITALS: BP 121/83
[2017-12-31] MEDS: ATORVASTATIN 80 MG TABLET PO SCH (21:10)
[2017-12-31] MEDS: APIXABAN 5 MG TABLET PO SCH (21:10)
[2017-12-31] MEDS: MORPHINE SULFATE 4 MG/ML, 1ML IVPush PRN (22:38)
[2018-01-01 00:38] LABS: TROPONIN I 0.138 ng/mL (0.000-0.045)
[2018-01-01 01:13] VITALS: BP 112/79
[2018-01-01 05:00] VITALS: BP 109/78
[2018-01-01] MEDS: CARVEDILOL 12.5 MG TABLET PO SCH ×2 (05:06→18:29)
[2018-01-01] MEDS: MORPHINE SULFATE 4 MG/ML, 1ML IVPush PRN (05:06)
[2018-01-01 05:54] LABS: MEAN CORPUSCULAR HEMOGLOBIN 26.3 pg (27.5-34.5); MEAN CORPUSCULAR HGB CONC 31.2 g/dL (33.2-36.2); MEAN CORPUSCULAR VOLUME 84.2 fL (81-97); MEAN PLATELET VOLUME 8.2 fL (7.4-10.4); PLATELET COUNT 239 x10^3/uL (130-400); RED BLOOD COUNT 4.65 x10^6/uL (4.38-5.82); RED CELL DISTRIBUTION WIDTH 22.6 % (9.4-14.8)
[2018-01-01] MEDS ORDERED: LEVOTHYROXINE 50 MCG TABLET PO SCH (06:00)
[2018-01-01 06:15] LABS: BASOPHILS # (AUTO) 0.02 x10^3/uL (0-0.1); BASOPHILS % (AUTO) 0 % (0-1); EOSINOPHILS # (AUTO) 0.05 x10^3/uL (0-0.4); EOSINOPHILS % (AUTO) 1 % (1-7); LYMPHOCYTES % (AUTO) 9 % (22-44); MD SCAN; MONOCYTES # (AUTO) 0.57 x10^3/uL (0.2-0.8); MONOCYTES % (AUTO) 11 % (2-9); NEUTROPHILS # (AUTO) 4.32 x10^3/uL (1.8-6.8); NEUTROPHILS % (AUTO) 79 % (42-75)
[2018-01-01] MEDS ORDERED: FUROSEMIDE 20 MG/2 ML IV ONE (06:30)
[2018-01-01 06:48] VITALS: BP 120/80
[2018-01-01 06:51] LABS: ANION GAP 10 mmol/L (5-15); CALCIUM 8.5 mg/dL (8.5-10.1); CHLORIDE 103 mmol/L (98-107); CREATININE 1.56 mg/dL (0.7-1.3)
[2018-01-01 06:53] LABS: TROPONIN I 0.113 ng/mL (0.000-0.045)
[2018-01-01] MEDS: APIXABAN 5 MG TABLET PO SCH ×2 (08:28→18:29)
[2018-01-01] MEDS ORDERED: CLOPIDOGREL 75 MG TABLET PO SCH (09:00)
[2018-01-01] MEDS ORDERED: AMIODARONE 200 MG TABLET PO SCH (09:00)
[2018-01-01] MEDS ORDERED: FUROSEMIDE 40 MG TABLET PO SCH (09:00)
[2018-01-01] MEDS ORDERED: LISINOPRIL 10 MG TABLET PO SCH (09:00)
[2018-01-01] MEDS ORDERED: SPIRONOLACTONE 25 MG TABLET PO SCH (09:00)
[2018-01-01] MEDS ORDERED: ISOSORBIDE MONONITRATE ER 60 MG TABLET PO SCH (09:00)
[2018-01-01] MEDS ORDERED: ASPIRIN 325 MG TABLET EC PO SCH (09:00)
[2018-01-01 12:26] VITALS: BP 98/67
[2018-01-01] MEDS: ATORVASTATIN 80 MG TABLET PO SCH (18:29)
== END 2018-01-01 19:07 | disposition home or self-care (01) | DRG 291 ==
LOC: ED 19:31 → EDIP 19:32 → 5SO 20:09
PROVIDERS: ADMIT Family Medicine; ATTEND Family Medicine
DX: I13.0 Hypertensive heart and chronic kidney disease with heart failure and stage 1 through stage 4 chronic kidney disease, or unspecified chronic kidney disease (principal); I50.23 Acute on chronic systolic (congestive) heart failure; E66.9 Obesity, unspecified; I25.110 Atherosclerotic heart disease of native coronary artery with unstable angina pectoris; E78.5 Hyperlipidemia, unspecified; G47.33 Obstructive sleep apnea (adult) (pediatric); I25.5 Ischemic cardiomyopathy; I48.91 Unspecified atrial fibrillation; N18.9 Chronic kidney disease, unspecified; Z95.5 Presence of coronary angioplasty implant and graft; I25.2 Old myocardial infarction; Z95.810 Presence of automatic (implantable) cardiac defibrillator; Z99.81 Dependence on supplemental oxygen; Z87.01 Personal history of pneumonia (recurrent); Z79.899 Other long term (current) drug therapy; Z79.82 Long term (current) use of aspirin; Z82.49 Family history of ischemic heart disease and other diseases of the circulatory system; Z80.1 Family history of malignant neoplasm of trachea, bronchus and lung; Z68.36 Body mass index [BMI] 36.0-36.9, adult
CPT/HCPCS: 36415; 70450; 71045; 80048; 82040; 82962; 83735; 83880; 84484; 85025; 93005; 96374; 96375; G0378; J2405; J1940

== ENCOUNTER 2018-04-02 20:35 | Inpatient (IN) | payer SELFPAY ==
[~2018-04-02] VITALS: Ht 180.3 cm; Wt 111.2 kg
[~2018-04-02 20:35] MED LIST changes: +ASPI-650 PO; +ATOR20TA37 PO; -ATOR20TA9 PO; +FERR324T5 PO; -GABA600T2 PO; +GABA600T7 PO
--- NOTE | 2018-04-02 20:35 | NUR ---
BIB EMS for CP since 1900 "crushing and constant" radiating to left arm and shoulder, feels the same as previous MIs, started while watching tv. Pt with AICD, fired multiple times en route. +nausea, +SOB. Took 324 mg ASA PATIENT OFFICE REP. HX of afib. EKG done upon arrival to ED.
--- NOTE | 2018-04-02 20:53 | NUR ---
Labs drawn, PIV started. Pt placed on all monitors, afib noted. Pt with AICD, occassional paced beats seen. Pt placed on 2L NC for RA O2 sat of 85%, pt also reports feeling short of breath.
--- NOTE | 2018-04-02 21:19 | NUR ---
XR at bedside.
[2018-04-02] MEDS ORDERED: ONDANSETRON 2MG/ML, 2ML ONE (21:20)
[2018-04-02] MEDS ORDERED: MORPHINE SULFATE 4 MG/ML, 1ML ONE (21:21)
--- NOTE | 2018-04-02 21:24 | NUR ---
Pt medicated per MAR.
[2018-04-02] MEDS ORDERED: MORPHINE SULFATE 4 MG/ML, 1ML IVPush PRN ×2 (21:30→22:30)
[2018-04-02] MEDS ORDERED: ONDANSETRON 2MG/ML, 2ML IVPush ONE (21:30)
[2018-04-02 21:31] LABS: INTERNATIONAL NORMALIZED RATIO 1.21 (0.93-1.1); PROTHROMBIN TIME 12.7 Seconds (9.6-11.5)
[2018-04-02 21:32] LABS: BASOPHILS # (AUTO) 0.02 x10^3/uL (0-0.1); BASOPHILS % (AUTO) 0 % (0-1); EOSINOPHILS # (AUTO) 0.08 x10^3/uL (0-0.4); EOSINOPHILS % (AUTO) 2 % (1-7); LYMPHOCYTES # (AUTO) 0.49 x10^3/uL (1-3.4); LYMPHOCYTES % (AUTO) 10 % (22-44); MD NO; MEAN CORPUSCULAR HEMOGLOBIN 28.2 pg (27.5-34.5); MEAN CORPUSCULAR HGB CONC 32.2 g/dL (33.2-36.2); MEAN CORPUSCULAR VOLUME 87.5 fL (81-97); MONOCYTES # (AUTO) 0.45 x10^3/uL (0.2-0.8); MONOCYTES % (AUTO) 9 % (2-9); NEUTROPHILS # (AUTO) 3.88 x10^3/uL (1.8-6.8); NEUTROPHILS % (AUTO) 79 % (42-75); PLATELET COUNT 219 x10^3/uL (130-400); RED BLOOD COUNT 4.46 x10^6/uL (4.38-5.82); RED CELL DISTRIBUTION WIDTH 19.9 % (9.4-14.8)
[2018-04-02 21:33] LABS: ALBUMIN 3.2 g/dL (3.4-5.0); ANION GAP 6 mmol/L (5-15); CALCIUM 8.7 mg/dL (8.5-10.1); CHLORIDE 109 mmol/L (98-107); CREATININE 1.22 mg/dL (0.7-1.3)
[2018-04-02 21:37] LABS: TROPONIN I 0.068 ng/mL (0.000-0.045)
--- NOTE | 2018-04-02 22:15 | NUR ---
Dr. Green at bedside to discuss ED findings and plan to admit.
[2018-04-02] MEDS ORDERED: ONDANSETRON 2MG/ML, 2ML IVPush PRN ×2 (22:30→23:30)
--- NOTE | 2018-04-02 22:48 | NUR ---
Attempt made to call report to RN, no answer, will attempt again shortly.
--- NOTE | 2018-04-02 22:57 | NUR ---
Telephone SBAR report called to RNSra[facility]. Pt made aware of new room assignment.
[2018-04-02] MEDS ORDERED: LIDODERM 5% PATCH TD PRN (23:30)
[2018-04-02] MEDS ORDERED: hydrALAzine 20 MG/ML, 1ML IVPush PRN (23:30)
[2018-04-02] MEDS ORDERED: DOCUSATE 100 MG CAPSULE PO PRN (23:30)
[2018-04-02] MEDS ORDERED: ACETAMINOPHEN 325 MG TABLET PO PRN (23:30)
[2018-04-02] MEDS ORDERED: BISACODYL 10 MG SUPP PR PRN (23:30)
[2018-04-02] MEDS ORDERED: DIPHENHYDRAMINE 25 MG CAPSULE PO PRN (23:30)
[2018-04-03] VITALS (7 sets, daily range): BP systolic 108–152; BP diastolic 54–90
[2018-04-03] MEDS ORDERED: NITROGLYCERIN 0.4 MG BOTTLE (25 TABS) SL PRN (00:30)
[2018-04-03] MEDS ORDERED: NITROGLYCERIN 0.4 MG/SPRAY SL PRN (00:30)
[2018-04-03] MEDS: ATORVASTATIN 80 MG TABLET PO SCH ×2 (00:55→21:18)
[2018-04-03] MEDS: morphine SULFATE 10 MG/ML, 1ML IVPush PRN ×3 (01:03→13:39)
[2018-04-03 03:36] LABS: TROPONIN I 0.068 ng/mL (0.000-0.045)
[2018-04-03] MEDS: CARVEDILOL 12.5 MG TABLET PO SCH ×2 (06:37→18:42)
[2018-04-03] MEDS: LEVOTHYROXINE 50 MCG TABLET PO SCH (06:37)
[2018-04-03 09:43] LABS: TROPONIN I 0.058 ng/mL (0.000-0.045)
[2018-04-03] MEDS: AMIODARONE 200 MG TABLET PO SCH (09:45)
[2018-04-03] MEDS: FUROSEMIDE 40 MG TABLET PO SCH (09:45)
[2018-04-03] MEDS: CLOPIDOGREL 75 MG TABLET PO SCH (09:45)
[2018-04-03] MEDS: SPIRONOLACTONE 25 MG TABLET PO SCH (09:45)
[2018-04-03] MEDS: ASPIRIN 325 MG TABLET EC PO SCH (09:45)
[2018-04-03] MEDS: LISINOPRIL 20 MG TABLET PO SCH (09:46)
[2018-04-03] MEDS: FERROUS SULFATE 325 MG TABLET PO SCH (09:46)
[2018-04-03] MEDS: APIXABAN 5 MG TABLET PO SCH ×2 (09:46→21:18)
[2018-04-03 15:38] LABS: TROPONIN I 0.054 ng/mL (0.000-0.045)
[2018-04-03] MEDS: MORPHINE SULFATE 4 MG/ML, 1ML IVPush PRN (22:36)
[2018-04-04 04:04] VITALS: BP 107/74
[2018-04-04 06:03] LABS: ALBUMIN 2.8 g/dL (3.4-5.0); ANION GAP 6 mmol/L (5-15); CALCIUM 8.2 mg/dL (8.5-10.1); CHLORIDE 107 mmol/L (98-107)
[2018-04-04 06:08] LABS: ALANINE AMINOTRANSFERASE 20 U/L (12-78); ALKALINE PHOSPHATASE 109 U/L (45-117); BILIRUBIN,TOTAL 0.5 mg/dL (0.2-1.0); CREATININE 1.17 mg/dL (0.7-1.3); TOTAL PROTEIN 6.3 g/dL (6.4-8.2)
[2018-04-04 06:31] VITALS: BP 110/74
[2018-04-04] MEDS: CARVEDILOL 12.5 MG TABLET PO SCH ×2 (06:34→18:29)
[2018-04-04] MEDS: LEVOTHYROXINE 50 MCG TABLET PO SCH (06:34)
[2018-04-04] MEDS ORDERED: REGADENOSON 0.4 MG/5 ML SYRINGE ONE (07:55)
[2018-04-04 07:58] VITALS: BP 109/76
[2018-04-04] MEDS ORDERED: ACETAMINOPHEN 325 MG TABLET PO PRN (10:30)
[2018-04-04] MEDS ORDERED: ISOSORBIDE MONONITRATE ER 30 MG TABLET PO SCH (10:30)
[2018-04-04] MEDS: AMIODARONE 200 MG TABLET PO SCH (11:05)
[2018-04-04] MEDS: CLOPIDOGREL 75 MG TABLET PO SCH (11:05)
[2018-04-04] MEDS: ASPIRIN 325 MG TABLET EC PO SCH (11:05)
[2018-04-04] MEDS: FUROSEMIDE 40 MG TABLET PO SCH (11:06)
[2018-04-04] MEDS: APIXABAN 5 MG TABLET PO SCH ×2 (11:06→21:55)
[2018-04-04] MEDS: FERROUS SULFATE 325 MG TABLET PO SCH (11:06)
[2018-04-04] MEDS: LISINOPRIL 20 MG TABLET PO SCH (11:06)
[2018-04-04] MEDS: SPIRONOLACTONE 25 MG TABLET PO SCH (11:06)
[2018-04-04 15:09] VITALS: BP 99/65
[2018-04-04 20:35] VITALS: BP 112/79
[2018-04-04 21:53] VITALS: BP 121/78
[2018-04-04] MEDS: ATORVASTATIN 80 MG TABLET PO SCH (21:55)
[2018-04-04] MEDS: MORPHINE SULFATE 4 MG/ML, 1ML IVPush PRN (21:56)
[2018-04-05 03:57] VITALS: BP 114/82
[2018-04-05 06:43] VITALS: BP 123/87
[2018-04-05] MEDS: CARVEDILOL 12.5 MG TABLET PO SCH (06:46)
[2018-04-05] MEDS: LEVOTHYROXINE 50 MCG TABLET PO SCH (06:46)
[2018-04-05 07:32] VITALS: BP 128/81
[2018-04-05] MEDS: FERROUS SULFATE 325 MG TABLET PO SCH (08:42)
[2018-04-05] MEDS: ASPIRIN 325 MG TABLET EC PO SCH (08:42)
[2018-04-05] MEDS: APIXABAN 5 MG TABLET PO SCH (08:42)
[2018-04-05] MEDS: LISINOPRIL 20 MG TABLET PO SCH (08:42)
[2018-04-05] MEDS: CLOPIDOGREL 75 MG TABLET PO SCH (08:42)
[2018-04-05] MEDS: FUROSEMIDE 40 MG TABLET PO SCH (08:42)
[2018-04-05] MEDS: AMIODARONE 200 MG TABLET PO SCH (08:42)
[2018-04-05] MEDS: SPIRONOLACTONE 25 MG TABLET PO SCH (08:43)
[2018-04-05] MEDS ORDERED: ISOSORBIDE MONONITRATE ER 30 MG TABLET PO SCH (09:00)
[2018-04-05] MEDS: MORPHINE SULFATE 4 MG/ML, 1ML IVPush PRN (09:05)
[2018-04-05] MEDS ORDERED: FERR324T5 PO (10:39)
[2018-04-05] MEDS ORDERED: NITR0.4T SL (10:39)
== END 2018-04-05 16:33 | disposition home or self-care (01) | DRG 303 ==
LOC: ED 22:06 → EDIP 22:18 → 5SO 23:16 → DCLOUNGE 04-05 16:21
PROVIDERS: ADMIT Internal Medicine; ATTEND Internal Medicine
DX: I25.110 Atherosclerotic heart disease of native coronary artery with unstable angina pectoris (principal); D68.69 Other thrombophilia; I48.92 Unspecified atrial flutter; I50.22 Chronic systolic (congestive) heart failure; E03.9 Hypothyroidism, unspecified; E66.9 Obesity, unspecified; E78.5 Hyperlipidemia, unspecified; G89.29 Other chronic pain; I11.0 Hypertensive heart disease with heart failure; I25.5 Ischemic cardiomyopathy; I48.2 Chronic atrial fibrillation; I65.21 Occlusion and stenosis of right carotid artery; R94.31 Abnormal electrocardiogram [ECG] [EKG]; I73.9 Peripheral vascular disease, unspecified; G62.9 Polyneuropathy, unspecified; Z68.34 Body mass index [BMI] 34.0-34.9, adult; Z79.01 Long term (current) use of anticoagulants; Z82.49 Family history of ischemic heart disease and other diseases of the circulatory system; Z87.891 Personal history of nicotine dependence; Z90.49 Acquired absence of other specified parts of digestive tract; Z95.5 Presence of coronary angioplasty implant and graft; Z95.810 Presence of automatic (implantable) cardiac defibrillator; Z86.73 Personal history of transient ischemic attack (TIA), and cerebral infarction without residual deficits
CPT/HCPCS: 36415; 71045; 78452; 80048; 80053; 82040; 83880; 84484; 85025; 85610; 93005; 93017; 96374; 96375; G0378; J2405; J2785; A9502; C9898; J2270

== ENCOUNTER 2020-07-17 19:38 | Observation (INO) | payer MEDICARE ==
[~2020-07-17] VITALS: Ht 180.3 cm; Wt 132.0 kg
[~2020-07-17 19:38] MED LIST changes: +ASPI-1026 PO; -ASPI-650 PO; +AZIT500T10 PO; -AZIT500T5 PO; +CARV25TA PO; +CLON-364 PO; -CLON0.5T11 PO; -DIGO250T PO; +DIGO250T3 PO; -DULO20CA17 PO; +DULO20CA18 PO; +FERR324T23 PO; -FERR325T16 PO; +HYDR-3341 PO; +LISI-170 PO; -NITR0.4T SL; +NITR0.4T41 SL; -OXYC5TAB3 PO; +OXYC5TAB98 PO
--- NOTE | 2020-07-17 19:49 | NUR ---
BIBA. PT WAS SITTING AT DESK ON THE COMPUTER WHEN HE HAD SUDDEN ONSET OF CP 9/10 THAT RADIATES TO LEFT JAW ON ARM. PT TOOK 324 ASPRIRIN AND 3 NITRO 1.2 MG. PT ATTACHED TO CARDIAC/SP02/BP MONITORS. VSS. 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
[2020-07-17] MEDS ORDERED: ONDANSETRON 2MG/ML, 2ML IVPush ONE (20:00)
[2020-07-17] MEDS ORDERED: SODIUM CHLORIDE FLUSH 10ML SYR IVF ONE (20:00)
[2020-07-17 20:28] LABS: BASOPHILS % (AUTO) 1 % (0-1); EOSINOPHILS % (AUTO) 1 % (1-7); LYMPHOCYTES % (AUTO) 12 % (22-44); MD NO; MEAN CORPUSCULAR HEMOGLOBIN 30.2 pg (27.5-34.5); MEAN CORPUSCULAR HGB CONC 33.4 g/dL (33.2-36.2); MEAN PLATELET VOLUME 8.6 fL (7.4-10.4); MONOCYTES % (AUTO) 10 % (2-9); NEUTROPHILS % (AUTO) 77 % (42-75); PLATELET COUNT 177 x10^3/uL (130-400); RED BLOOD COUNT 4.24 x10^6/uL (4.38-5.82); RED CELL DISTRIBUTION WIDTH 13.9 % (9.4-14.8)
[2020-07-17] MEDS ORDERED: ONDANSETRON 2MG/ML, 2ML ONE (20:31)
[2020-07-17] MEDS ORDERED: MORPHINE SULFATE 4 MG/ML, 1ML ONE ×2 (20:31→20:57)
[2020-07-17] MEDS: MORPHINE SULFATE 4 MG/ML, 1ML IVPush PRN ×2 (20:33→20:58)
[2020-07-17] MEDS ORDERED: FURO20TA3 PO ×2 (20:35→22:06)
[2020-07-17] MEDS ORDERED: FERR324T5 PO (20:35)
[2020-07-17 20:39] LABS: ALANINE AMINOTRANSFERASE 36 U/L (12-78); ALBUMIN 3.3 g/dL (3.4-5.0); ANION GAP 7 mmol/L (5-15); CALCIUM 8.8 mg/dL (8.5-10.1); CHLORIDE 112 mmol/L (98-107)
[2020-07-17 20:44] LABS: ALKALINE PHOSPHATASE 145 U/L (45-117); BILIRUBIN,TOTAL 0.7 mg/dL (0.2-1.0); CREATININE 1.31 mg/dL (0.7-1.3); TOTAL PROTEIN 6.8 g/dL (6.4-8.2); TROPONIN I 0.045 ng/mL (0.000-0.045)
--- NOTE | 2020-07-17 21:00 | NUR ---
PT MEDICATED PER MAR FOR PAIN, NAD, VSS, PLACED ON 2L NC AFTER PAIN MEIDCATION O2 SATS AT 96%. BED IN LOWEST, RAILS ENGAGED, CALL LIGHT ON LAP, WCTM.
--- NOTE | 2020-07-17 21:30 | NUR ---
pt medicated per andres es[place], [place], to be admitted, wctm. no change in condition.
[2020-07-17] MEDS ORDERED: CYAN250013 PO (22:06)
[2020-07-17] MEDS ORDERED: OXYC10TA6 PO (22:06)
[2020-07-17] MEDS ORDERED: MORPHINE ER (22:06)
[2020-07-17] MEDS ORDERED: ASPI-963 PO (22:06)
[2020-07-17] MEDS ORDERED: LEVO125T5 PO (22:06)
[2020-07-17] MEDS ORDERED: MORPHINE (22:06)
[2020-07-17] MEDS ORDERED: CHOL10003 PO (22:06)
[2020-07-17] MEDS ORDERED: DOCUSATE 100 MG CAPSULE PO PRN (23:00)
[2020-07-17] MEDS ORDERED: ACETAMINOPHEN 325 MG TABLET PO PRN (23:00)
[2020-07-17] MEDS ORDERED: OXYcodone IR 5MG TABLET PO PRN (23:00)
[2020-07-17] MEDS ORDERED: ONDANSETRON ODT 4 MG PO PRN (23:00)
[2020-07-17] MEDS ORDERED: NITROGLYCERIN 0.4 MG BOTTLE (25 TABS) SL PRN (23:00)
[2020-07-17] MEDS ORDERED: ONDANSETRON 2MG/ML, 2ML IVPush PRN (23:00)
[2020-07-17] MEDS ORDERED: hydrALAzine 20 MG/ML, 1ML IVPush PRN (23:00)
[2020-07-17] MEDS ORDERED: POLYETHYLENE GLYCOL 17 GM PACKET PO PRN (23:00)
[2020-07-17] MEDS ORDERED: ENOXAPARIN 40 MG/0.4 ML SQ SCH (23:00)
[2020-07-17] MEDS ORDERED: PROMETHAZINE 25 MG/ML, 1ML IM PRN (23:00)
[2020-07-17] MEDS ORDERED: BISACODYL 10 MG SUPP PR PRN (23:00)
--- NOTE | 2020-07-17 23:03 | NUR ---
report called to luana wilcox, pt care to be transferred upon arrival to the floor, pt nad, appears comfortable, denies additional needs at this time. wctm.
[2020-07-17] MEDS ORDERED: CARVEDILOL 25 MG TABLET PO SCH (23:30)
[2020-07-17] MEDS ORDERED: ISOSORBIDE MONONITRATE ER 60 MG TABLET PO SCH (23:30)
[2020-07-18] VITALS: BP 143/69
[2020-07-18 00:11] VITALS: BP 143/69
[2020-07-18] MEDS: APIXABAN 5 MG TABLET PO SCH ×2 (00:22→08:44)
[2020-07-18] MEDS: FUROSEMIDE 20 MG TABLET PO SCH ×2 (00:23→08:45)
[2020-07-18 02:49] LABS: TROPONIN I 0.044 ng/mL (0.000-0.045)
[2020-07-18 05:30] LABS: BASOPHILS % (AUTO) 0 % (0-1); EOSINOPHILS % (AUTO) 2 % (1-7); LYMPHOCYTES % (AUTO) 16 % (22-44); MEAN CORPUSCULAR HEMOGLOBIN 30.2 pg (27.5-34.5); MEAN CORPUSCULAR HGB CONC 33.2 g/dL (33.2-36.2); MEAN PLATELET VOLUME 8.2 fL (7.4-10.4); MONOCYTES % (AUTO) 12 % (2-9); NEUTROPHILS % (AUTO) 70 % (42-75); PLATELET COUNT 175 x10^3/uL (130-400); RED BLOOD COUNT 4.33 x10^6/uL (4.38-5.82); RED CELL DISTRIBUTION WIDTH 14.4 % (9.4-14.8)
[2020-07-18 05:32] LABS: MD NO
[2020-07-18 05:39] LABS: CALCIUM 8.7 mg/dL (8.5-10.1); CHLORIDE 110 mmol/L (98-107)
[2020-07-18 05:51] LABS: ALANINE AMINOTRANSFERASE 33 U/L (12-78); ALBUMIN 3.3 g/dL (3.4-5.0); ALKALINE PHOSPHATASE 123 U/L (45-117); ANION GAP 3 mmol/L (5-15); BILIRUBIN,TOTAL 0.7 mg/dL (0.2-1.0); CHOL/HDL RATIO 3.6; CHOLESTEROL, TOTAL 118 mg/dL (140-239); CREATININE 1.35 mg/dL (0.7-1.3); HDL CHOL % 28 % (26-37); HDL CHOLESTEROL (DIRECT) 33 mg/dL (40-60); LDL CHOLESTEROL,CALCULATED 64 mg/dL (54-169); LDL/HDL RATIO 1.9 (0.5-3.0); TOTAL PROTEIN 6.8 g/dL (6.4-8.2); TRIGLYCERIDES 103 mg/dL (50-200); TROPONIN I 0.042 ng/mL (0.000-0.045); VLDL CHOLESTEROL 21 mg/dL (0-25)
[2020-07-18] MEDS ORDERED: ASPIRIN 325 MG TABLET EC PO SCH (06:00)
[2020-07-18] MEDS ORDERED: LEVOTHYROXINE 125 MCG TABLET PO SCH (06:00)
[2020-07-18] MEDS ORDERED: ISOS60TA36 PO (07:37)
[2020-07-18] MEDS ORDERED: LEVO137T2 PO (07:37)
[2020-07-18 07:48] VITALS: BP 145/84
[2020-07-18 07:52] LABS: FREE T4 (FREE THYROXINE) 1.09 ng/dL (0.76-1.46)
[2020-07-18] MEDS ORDERED: AMIODARONE 200 MG TABLET PO SCH (09:00)
[2020-07-18] MEDS ORDERED: ASPIRIN 81 MG TABLET EC PO SCH (09:00)
[2020-07-18] MEDS ORDERED: ATORVASTATIN 20 MG TABLET PO SCH (09:00)
[2020-07-18] MEDS ORDERED: LISINOPRIL 20 MG TABLET PO SCH (09:00)
[2020-07-18] MEDS ORDERED: ISOSORBIDE MONONITRATE ER 60 MG TABLET PO SCH (09:00)
[2020-07-18] MEDS ORDERED: CARVEDILOL 12.5 MG TABLET PO SCH (09:00)
[2020-07-18] MEDS ORDERED: CLOPIDOGREL 75 MG TABLET PO SCH (09:00)
[2020-07-18] MEDS ORDERED: FERROUS SULFATE 325 MG TABLET PO SCH (09:00)
== END 2020-07-18 10:40 | disposition home or self-care (01) ==
LOC: ED 20:12 → EDIP 22:54 → INTOOBSV 22:54 → 5SO 07-18 00:05 → DCLOUNGE 07-18 10:36
PROVIDERS: ADMIT Internal Medicine; ATTEND Family Medicine
DX: R07.89 Other chest pain (principal); I25.110 Atherosclerotic heart disease of native coronary artery with unstable angina pectoris; J81.1 Chronic pulmonary edema; I48.20 Chronic atrial fibrillation, unspecified; D68.59 Other primary thrombophilia; E03.9 Hypothyroidism, unspecified; G62.9 Polyneuropathy, unspecified; I11.0 Hypertensive heart disease with heart failure; I50.9 Heart failure, unspecified; I25.2 Old myocardial infarction; E78.5 Hyperlipidemia, unspecified; I25.5 Ischemic cardiomyopathy; Z99.81 Dependence on supplemental oxygen; Z95.810 Presence of automatic (implantable) cardiac defibrillator; Z86.73 Personal history of transient ischemic attack (TIA), and cerebral infarction without residual deficits; Z79.01 Long term (current) use of anticoagulants; Z79.899 Other long term (current) drug therapy; Z95.5 Presence of coronary angioplasty implant and graft; Z79.890 Hormone replacement therapy
CPT/HCPCS: 36415; 71045; 80053; 80061; 83036; 83735; 83880; 84100; 84439; 84443; 84481; 84484; 85025; 93005; 96374; 96375; 99291; G0378; J2270; J2405

== ENCOUNTER 2020-11-19 20:08 | Observation (INO) | payer MEDICARE ==
[~2020-11-19] VITALS: Ht 180.3 cm; Wt 120.0 kg
[2020-11-20 08:16] VITALS: BP 135/78
== END 2020-11-20 14:05 | disposition home or self-care (01) ==
LOC: ED 21:51 → EDIP 22:18 → INTOOBSV 22:18 → 5SO 23:37
PROVIDERS: ADMIT Internal Medicine; ATTEND Hospitalist
DX: I47.2 Ventricular tachycardia (principal); I48.0 Paroxysmal atrial fibrillation; E87.6 Hypokalemia; N17.9 Acute kidney failure, unspecified; I11.0 Hypertensive heart disease with heart failure; I50.9 Heart failure, unspecified; I71.4 Abdominal aortic aneurysm, without rupture; I25.5 Ischemic cardiomyopathy; J96.10 Chronic respiratory failure, unspecified whether with hypoxia or hypercapnia; I25.119 Atherosclerotic heart disease of native coronary artery with unspecified angina pectoris; I27.20 Pulmonary hypertension, unspecified; I35.0 Nonrheumatic aortic (valve) stenosis; E78.5 Hyperlipidemia, unspecified; E66.2 Morbid (severe) obesity with alveolar hypoventilation; E03.9 Hypothyroidism, unspecified; I25.2 Old myocardial infarction; Z79.899 Other long term (current) drug therapy; Z79.01 Long term (current) use of anticoagulants; Z79.82 Long term (current) use of aspirin; Z86.73 Personal history of transient ischemic attack (TIA), and cerebral infarction without residual deficits
CPT/HCPCS: 36415; 71045; 80048; 80053; 80061; 83735; 84484; 85025; 93005; 96365; 96366; 96375; 96376; 99291; C8929; G0378; J2270; J3480; J7040; Q9957